=== PATIENT | female | born 1955 | race Caucasian/White ===

== ENCOUNTER 2021-03-31 13:17 | Outpatient (CLI) | payer OTHER, SELFPAY ==
--- NOTE | ~2021-03-31 | MM_ITS ---
EXAMINATION: MM screening justine BI w javi HISTORY: Screening TECHNIQUE: Craniocaudal and mediolateral oblique 3-D tomosynthesis images were obtained and synthetic 2-D images were generated. CAD analysis was submitted and interpreted. COMPARISON: No prior mammogram is available for comparison at this institution. BREAST PARENCHYMAL COMPOSITION: There are scattered areas of fibroglandular density. FINDINGS: There is a mass in the upper inner quadrant of the left breast near the skin surface. There is focal asymmetry superiorly in the left breast on MLO view. There are right breast periareolar asy mmetries. There are clustered calcifications in the periareolar location as well. IMPRESSION: 1. Bilateral breast asymmetries and clustered nonspecific right breast calcifications. 2. Additional mammographic views and possible breast ultrasound are recommended. BI-RADS Category 0: Incomplete: Needs additional imaging evaluation. Reviewed, dictated and finalized at location A. IMPRESSION: 1. Bilateral breast asymmetries and clustered nonspecific right breast calcific ations. 2. Additional mammographic views and possible breast ultrasound are recommended . BI-RADS Category 0: Incomplete: Needs additional imaging evaluation.
== END 2021-03-31 13:18 | disposition home or self-care (01) ==
PROVIDERS: PCP Family Medicine; Visit Provider Physician Assistant Medical
DX: Z12.31 Encounter for screening mammogram for malignant neoplasm of breast (principal); R92.8 Other abnormal and inconclusive findings on diagnostic imaging of breast
CPT/HCPCS: 77063; 77067

== ENCOUNTER 2021-04-18 08:07 | Emergency (ER) | payer OTHER, SELFPAY ==
[2021-04-18 08:15] VITALS: BP 154/84; PULSE 70; RESP 16; TEMP 36.5; O2SAT 99
--- NOTE | 2021-04-18 08:15 | ED.DIZZY ---
HPI - Dizziness General Chief Complaint: Dizziness Stated Complaint: dizziness Time Seen by Provider: 04/18/21 08:10 Source: patient, RN notes reviewed and old records reviewed Mode of arrival: ambulatory Limitations: no limitations History of Present Illness HPI Narrative: 65-year-old female is brought in by her with complaints of headache, dizziness, nausea since 430 this morning. Patient states she has not been able to walk normally. Patient states that her heart felt like it was racing this morning. [place] really slow on exam Has a history of anxiety, depression, migraines, high cholesterol and insomnia. Has a history of inner ear issues. Has taken one dose of her Nurtec but states her symptoms have not improved. Patient states that I want to make sure I am not having a stroke. MD elicited complaint: dizziness and difficulty walking Pertinent past history: inner ear problems Related Data Home Medications Medication Instructions Recorded Confirmed bupropion HCl 300 mg 24 hr tablet, 300 mg PO QAM 03/05/21 03/05/21 extended release Review of Systems Review of Systems: All systems reviewed & are unremarkable except as noted in HPI and below Constitutional: Constitutional: Reports no additional constitutional complaints, Denies chills and Denies fever(s) Eyes: Eyes: Reports no additional eye complaints, Denies change in vision and Denies photophobia ENT: Reports as per HPI, Reports dizziness and Denies sore throat Cardiovascular: Cardiovascular: Reports as per HPI, Denies chest pain, Reports rapid heart rate and Reports slow heart rate Respiratory: Respiratory: Reports no additional respiratory complaints, Denies cough, Denies dyspnea and Denies wheezing Gastrointestinal: Gastrointestinal: Reports as per HPI, Denies abdominal pain, Reports nausea and Denies vomiting Musculoskeletal: Musculoskeletal: Reports no additional musculoskeletal complaints and Denies back pain Integumentary/Breasts: Skin/Breast: Reports system reviewed and no additional complaints, except as docu Neurologic: Reports as per HPI, Denies confusion, Reports dizziness, Denies syncope, Reports headache(s), Denies focal weakness, Denies numbness and Denies weakness Psychiatric: Psychiatric: Reports no additional psychiatric complaints Allergic/Immunologic: Allergic/Immunologic: Reports no additional allergic/immunologic complaints [facility] Past Medical History Medical History (Updated 04/18/21 @ 09:06 by Sonal James) Anxiety and depression Surgical History Surgical History (Updated 04/18/21 @ 08:15 by Sonal James) H/O: hysterectomy History of appendectomy Hx of breast reduction, elective Hx of cholecystectomy Family History Family History Father Family history of diabetes mellitus in first degree relative Grandparent Family history of malignant neoplasm of bone Family history of coronary artery disease Other Family history of lymphoma Social History Social History Alcohol intake: never Substance use: never Substance use type: does not use Additional living arrangements comments: Gender identity (if verbalized by the patient): Female Sexual Orientation (if Verbalized by the Patient): Straight or Heterosexual Spiritual care concerns: No Agree to blood products: Yes Comments At the time of my signature, I reviewed and agree with the nursing past medical, surgical, social, and family history. There is no relevant family history pertinent to the patient complaint. Exam Const: General: cooperative, healthy appearing, comfortable, no acute distress and alert Nutritional Appearance: well nourished Orientation/consciousness: patient oriented x3 Limitations: no limitations HENMT: Head: normal to inspection Ears: external ear abnormal Eyes: Conjunctivae: conjunctivae normal Pupil
--- NOTE | 2021-04-18 08:17 | ECG_ITS ---
Measurements Intervals [place] Rate: 54 P: 84 TX: 303 QRS: 31 QRSD: 90 T: 54 QT: 419 QTc: 398 Interpretive Statements SINUS BRADYCARDIA INCOMPLETE RIGHT BUNDLE BRANCH BLOCK LOW QRS VOLTAGE IN PRECORDIAL LEAD BASELINE ARTIFACT- I, II, III, AVR, AVL, AVF, V1-V3 BORDERLINE ECG Electronically Signed On 04-18-2021 17:28:13 PORTABLE IRRIGATION OPERATOR by Dalton Palmer D.O.
== END 2021-04-18 08:25 | disposition short-term general hospital (02) ==
PROVIDERS: Emergency Provider Nurse Practitioner; PCP Family Medicine
DX: R42 Dizziness and giddiness (principal); I45.10 Unspecified right bundle-branch block; F41.9 Anxiety disorder, unspecified; F32.9 Major depressive disorder, single episode, unspecified
CPT/HCPCS: 93005; 99213; G0463

== ENCOUNTER 2021-04-18 08:47 | Emergency (ER) | payer OTHER, SELFPAY ==
--- NOTE | ~2021-04-18 | XR_ITS ---
EXAMINATION: XR chest 2V EXAM DATE: 04/18/2021 11:09 INDICATION: Dizziness. TECHNIQUE: Frontal and lateral projections of the chest obtained and reviewed. Comparison is made to prior examination from 03/17/2015. FINDINGS: The lungs are clear. There are no pleural effusions. The cardiomediastinal silhouette is within normal limits. There is no pneumothorax suspected. Cervical fusion hardware. Mild bony degen erative changes. IMPRESSION: No acute cardiopulmonary findings. Reviewed, dictated and finalized at location A. [employer] LEGAL ASSISTANT
--- NOTE | ~2021-04-18 | CT_ITS ---
EXAMINATION: CT brain wo con EXAM DATE: 04/18/2021 10:19 INDICATION: Dizziness . TECHNIQUE: Spiral CT of the head was performed without contrast. Axial, coronal and sagittal images were reviewed. The dose-length product (DLP) for this examination was 605.33 mGy-cm. The exposure w as tailored according to patient size, and iterative reconstruction (ASIR) was used as additional dos e reduction technique. There is no prior study for comparison. FINDINGS: There is no acute intraparenchymal hemorrhage. No evidence of intraparenchymal brain mass lesion. No evidence of acute infarction. There is no mass effect or midline shift. The ventricles are normal in size. There are no extra-axial collections. There are no acute calvarial fractures. T he orbits are unremarkable. Soft tissue is unremarkable. The visualized sinuses and mastoid air tres ls are well aerated. IMPRESSION: 1. No acute intracranial findings. Reviewed, dictated and finalized at location A. ETHYLENE COMBINER
--- NOTE | 2021-04-18 08:54 | ECG_ITS ---
Measurements Intervals [place] Rate: 56 P: -21 MD: 133 QRS: 21 QRSD: 91 T: 65 QT: 401 QTc: 390 Interpretive Statements SINUS BRADYCARDIA INCOMPLETE RIGHT BUNDLE BRANCH BLOCK BASELINE ARTIFACT- I, II, III, AVR, AVL, AVF BORDERLINE ECG Electronically Signed On 04-18-2021 17:24:37 PATTERN REPAIR PERSON by Dalton Palmer D.O.
[2021-04-18 08:56] VITALS: BP 140/75; PULSE 59; RESP 18; TEMP 36.1; O2SAT 100
[2021-04-18 09:24] LABS: Basophils Absolute Auto 0.1 K/mm3 (0.0-0.1); Basophils Percent Auto 1.7 % (0.2-1.2); Eosinophils Absolute Auto 0.2 K/mm3 (0-0.3); Hematocrit 37.6 % (37.0-47.0); Hemoglobin 12.2 g/dL (12.0-15.0); Immature Granulocyte Absolute 0.01 K/mm3 (0.00-0.031); Immature Granulocyte Percent A 0.2 % (0-0.5); Lymphocytes Absolute Auto 1.47 K/mm3 (0.9-3.2); Lymphocytes Percent Auto 30.7 % (18.3-44.2); Mean Corpuscular HGB Conc 32.4 g/dl (32-36); Mean Corpuscular Hemoglobin 30.5 pg (26-34); Mean Platelet Volume 10.6 fl (7.4-10.4); Monocytes Absolute Auto 0.5 K/mm3 (0.1-0.6); Monocytes Percent Auto 10.6 % (2.6-8.5); Neutrophils Absolute Auto 2.5 K/mm3 (1.3-6.7); Neutrophils Percent Auto 51.8 % (45.5-73.1); Platelet Count Result 152 k/mm3 (150-375); Red Cell Distribution Width 13.1 % (11.5-14.5); White Blood Count 4.8 K/mm3 (4.5-10.0)
[2021-04-18 09:38] VITALS: BP 133/75; PULSE 70
[2021-04-18 09:40] VITALS: BP 145/83; PULSE 71
[2021-04-18 09:42] VITALS: BP 142/86; PULSE 64
[2021-04-18 09:44] LABS: Alanine Aminotransferase 35 U/L (4-35); Albumin Level 4.6 g/dL (3.5-5.1); Alkaline Phosphatase 77 U/L (38-126); Anion Gap 7 mmol/L (8-16); Aspartate Amino Transferase 33 U/L (14-36); Bilirubin,Total 0.5 mg/dL (0.2-1.3); Blood Urea Nitrogen 17 mg/dL (7-17); Carbon Dioxide 30 mmol/L (22-30); Chloride 104 mmol/L (98-107); Estimated CRCL calculation 60 ml/min; Estimated Glomerular Filt Rate > 60; Glucose 96 mg/dL (65-110); Potassium 3.9 mmol/L (3.4-5.0); Sodium 141 mmol/L (137-145)
[2021-04-18 10:16] LABS: Troponin I < 0.012 ng/mL (0.000-0.034)
[2021-04-18] MEDS: MECLIZINE HCL 25 MG TABLET PO (10:21)
[2021-04-18] MEDS: ONDANSETRON INJ 4 MG/2 ML VIAL IV PUSH (10:21)
[2021-04-18] MEDS: SODIUM CHLORIDE 0.9% IV 500 ML 999 ML IV CONT (10:22)
--- NOTE | 2021-04-18 10:42 | ED.DIZZY ---
HPI - Dizziness General Chief Complaint: Dizziness Stated Complaint: Dizziness/ migraines Time Seen by Provider: 04/18/21 10:11 Source: patient Mode of arrival: wheelchair Limitations: no limitations History of Present Illness HPI Narrative: This is a 65-year-old female that presents to the emergency department for dizziness that started this morning. Reports she woke up around 430 and was very dizzy and unsteady on her feet. Associated with some nausea and a mild headache. Does report history of dizziness in the past due to BPPV. She tried to rest without relief which prompted her to be seen. Denies fever, vision changes, chest pain, shortness of breath, vomiting, numbness or weakness. Related Data Home Medications Medication Instructions Recorded Confirmed bupropion HCl 300 mg 24 hr tablet, 300 mg PO QAM 03/05/21 04/18/21 extended release Allergies Allergy/AdvReac Type Severity Reaction Status Date / Time No Known Allergies Allergy Verified 04/18/21 09:37 Review of Systems Review of Systems: CONSTITUTIONAL: Denies fever EYES: Denies visual changes CARDIOVASCULAR: Denies chest pain, or edema. RESPIRATORY: Denies dyspnea. GASTROINTESTINAL: Reports nausea. Denies vomiting NEUROLOGIC: Denies numbness, or weakness. All systems reviewed & are unremarkable except as noted in HPI and below PMFSH Past Medical History Medical History (Updated 04/18/21 @ 12:59 by Karina Urrutia PA-C) Anxiety and depression Hyperlipidemia Insomnia Surgical History Surgical History (Updated 04/18/21 @ 08:15 by Sonal James) H/O: hysterectomy History of appendectomy Hx of breast reduction, elective Hx of cholecystectomy Family History Family History Father Family history of diabetes mellitus in first degree relative Grandparent Family history of malignant neoplasm of bone Family history of coronary artery disease Other Family history of lymphoma Social History Social History Alcohol intake: never Substance use: never Substance use type: does not use Additional living arrangements comments: Gender identity (if verbalized by the patient): Female Sexual Orientation (if Verbalized by the Patient): Straight or Heterosexual Spiritual care concerns: No Agree to blood products: Yes Exam Narrative: GENERAL: Well-appearing, well-nourished, and in no acute distress. HEAD: Normocephalic, atraumatic. EYES: PERRLA and EOMI. ENT: Nares clear, no rhinorrhea or epistaxis. Mucous membranes moist. Oropharynx without tonsillar hypertrophy exudate or other lesions. Bilateral TMs pearly olivares non-bulging NECK: Supple. No adenopathy or masses. No carotid bruits or JVD CHEST: Clear to auscultation. No respiratory distress. No wheezes rales or rhonchi HEART: Regular rate and rhythm. No murmur heard. Normal peripheral pulses. ABDOMEN: Soft, nontender, nondistended, normal active bowel sounds. EXTREMITIES: Normal range of motion. No edema. Strength equal in bilateral upper and lower extremities (5/5). Normal [id number] SKIN: Warm, dry, no rash. NEURO: No focal deficits. Alert and oriented x3. Cranial nerves II through XII grossly intact PSYCH: Normal mood and affect Course Vital Signs Vital signs: Vital Signs Temperature 97.0 F L 04/18/21 08:56 Pulse Rate 59 L 04/18/21 08:56 Respiratory Rate 18 04/18/21 08:56 Blood Pressure 140/75 04/18/21 08:56 Pulse Oximetry 100 04/18/21 08:56 Temperature 97.0 F L 04/18/21 08:56 Pulse Rate 64 04/18/21 12:10 Respiratory Rate 17 04/18/21 12:10 Blood Pressure 128/73 04/18/21 12:10 Pulse Oximetry 97 04/18/21 12:10 MDM - Dizziness MDM Narrative Medical decision making narrative: Patient presents to the emergency department for an episode of dizziness this morning. Does have history of BPPV in the past. She is afebrile an
[2021-04-18 12:10] VITALS: BP 128/73; PULSE 64; RESP 17; O2SAT 97
[2021-04-18 13:17] VITALS: BP 126/90; PULSE 60; RESP 16; O2SAT 100
== END 2021-04-18 13:19 | disposition home or self-care (01) ==
PROVIDERS: Emergency Provider Emergency Medicine; PCP Family Medicine
DX: R42 Dizziness and giddiness (principal); E78.5 Hyperlipidemia, unspecified; F41.9 Anxiety disorder, unspecified; F32.A Depression, unspecified
CPT/HCPCS: 36415; 70450; 71046; 80053; 84484; 85025; 93005; 96361; 96374; 99284; A9270; J2405; J7040

== ENCOUNTER 2021-04-27 12:44 | Outpatient (CLI) | payer OTHER, SELFPAY ==
--- NOTE | ~2021-04-27 | MMUS_ITS ---
EXAMINATION: MM diagnostic justine LT w javi, US breast LT limited HISTORY: New focal mass reported in medial aspect of left breast on 03/31/2021 screening mammogram TECHNIQUE: Additional 3-D tomosynthesis images of the left breast were performed and synthetic 2-D im ages were generated. CAD analysis was submitted and interpreted. High resolution targeted left breast ultrasound was performed. COMPARISON: 04/17/2021 bilateral screening mammogram 08/13/2015 bilateral screening mammogram FINDINGS: MAMMOGRAPHIC FINDINGS: An approximately 3.3 x 5.3 mm circumscribed mass is noted superficially in the mid to upper inner lef t breast at approximately 9 to 10:00 position, not present on 08/13/2015. Targeted ultrasound examinat ion was performed. No suspicious mass or architectural distortion of the left breast is noted otherwise. A stable circum scribed approximately 4.3 circumscribed mass is again noted in the upper outer quadrant left breast, present on 08/13/2015 There are scattered benign calcifications of the left breast. No malignant calcification, architectur al distortion, skin thickening or retraction is detected. ULTRASOUND: 10:00 7 cm from nipple: Parallel circumscribed approximately 4 x 6.9 mm mass, peripherally hyperechoi c, without internal vascularity or suspicious shadowing. IMPRESSION: 1. Probable benign finding 2. 6 month diagnostic left mammogram and targeted left breast ultrasound follow-up are recommended BI-RADS category 3, probably benign findings. Reviewed, dictated and finalized at location A. MECHANIC IMPRESSION: 1. Probable benign finding 2. 6 month diagnostic left mammogram and targeted left breast ultrasound follow -up are recommended BI-RADS category 3, probably benign findings.
== END 2021-04-27 12:45 | disposition home or self-care (01) ==
LOC: ANHIMG 12:45
PROVIDERS: PCP Family Medicine; Visit Provider Physician Assistant Medical
DX: R92.1 Mammographic calcification found on diagnostic imaging of breast (principal); N64.89 Other specified disorders of breast; N63.22 Unspecified lump in the left breast, upper inner quadrant
CPT/HCPCS: 76642; 77061; 77065; G0279

== ENCOUNTER 2022-03-07 22:13 | Inpatient (IN) | payer OTHER, MEDICARE, SELFPAY ==
--- NOTE | ~2022-03-07 | CT_ITS ---
EXAMINATION: CTA abdomen pelvis DATE: 03/08/2022 00:50 INDICATION: Severe abdominal pain radiating to the back. TECHNIQUE: Computed tomographic angiography (CTA) of the abdomen and pelvis was performed with 100 mL Omnipaque-350 intravenous contrast. Automated exposure control and iterative reconstruction techniqu e were employed. The dose-length product was 566.22 mGy-cm. Maximum intensity projection 3D-reconstru ctions of the aorta and other arteries were constructed by the technologist on a separate workstation . COMPARISON: CT abdomen and pelvis 06/27/2018 FINDINGS: The visualized portions of the lung bases demonstrate mild atelectasis. No pleural effusion . The heart size is normal. No pericardial effusion. The liver and spleen are normal. The gallbladder is absent. The pancreas, adrenal glands, and right kidney are normal. There are cysts in left kidney measuring up to 16 mm. There is diverticulosis of the colon without evidence of diverticulitis. The appendix is not visualized. There are multiple dilated loops of small bowel with mesenteric edema and multiple transition points in close proximity. There are surgical changes of the stomach. There is a small sliding hiatal hernia. Abdominal aorta is normal in caliber. There is no significant stenosis of celiac axis, superior mesenteric artery, inferior mesenteric artery, or the renal arteries. There is a small volume of pelvic ascites. There are no pathologically enlarged lymph nodes. There is sever e lower lumbar spondylosis. IMPRESSION: 1. Closed-loop small bowel obstruction. I discussed this result with Dr. Merchant. 2. Small volume of ascites. Reviewed, dictated and finalized at location A.
--- NOTE | ~2022-03-07 | XR_ITS ---
EXAMINATION: XR abdomen NG/feed tube rechec DATE: 03/08/2022 14:15 INDICATION: Nasogastric tube placement. TECHNIQUE: A supine view of the abdomen was obtained. COMPARISON: Abdomen radiograph at 4:29 AM, CT abdomen and pelvis 03/08/2022 FINDINGS: There are dilated loops of small bowel. The colon is normal in caliber. The nasogastric tub e tip is in the stomach. Skin mehdi are noted. IMPRESSION: 1. Nasogastric tube tip in the stomach. 2. Dilated small bowel, consistent with adynamic ileus. Reviewed, dictated and finalized at location A.
--- NOTE | ~2022-03-07 | XR_ITS ---
EXAMINATION: XR abdomen NG/feed tube rechec DATE: 03/08/2022 04:34 INDICATION: Nasogastric tube placement. TECHNIQUE: An upright view of the abdomen was obtained. COMPARISON: Abdomen radiograph at 3:02 AM, CT abdomen and pelvis 03/08/2022 FINDINGS: The lower abdomen is excluded. There are dilated loops of small bowel. The colon is decompr essed. The nasogastric tube tip is in the stomach. IMPRESSION: 1. Nasogastric tube tip in the stomach. 2. Small bowel obstruction. Reviewed, dictated and finalized at location A.
--- NOTE | ~2022-03-07 | XR_ITS ---
EXAMINATION: XR abdomen NG/feed tube insert DATE: 03/08/2022 03:07 INDICATION: Nasogastric tube placement. TECHNIQUE: An upright view of the abdomen was obtained. COMPARISON: CT abdomen and pelvis 03/08/2022 FINDINGS: The lower abdomen is excluded. There are dilated loops of small bowel. The colon is decompr essed. The nasogastric tube tip is in the stomach. IMPRESSION: 1. Nasogastric tube tip in the stomach. 2. Small bowel obstruction. Reviewed, dictated and finalized at location A.
[2022-03-07 22:17] VITALS: BP 133/80; PULSE 65; RESP 16; TEMP 36.2; O2SAT 100
[2022-03-08] VITALS (16 sets, daily range): BP systolic 125–153; BP diastolic 72–95; PULSE 61–98; RESP 12–18; TEMP 36.6–36.9; O2SAT 92–100; BMI 30.2
[2022-03-08] MEDS: fentaNYL CITRATE INJ (*CRX) 100 MCG/2 ML VIAL 50 MCG IV PUSH ×2 (00:10→09:59)
[2022-03-08] MEDS: ONDANSETRON INJ 4 MG/2 ML VIAL IV PUSH ×2 (00:10→03:00)
[2022-03-08] MEDS: SODIUM CHLORIDE 0.9% IV 1,000 ML 999 ML IV CONT (00:11)
[2022-03-08 00:28] LABS: Add Urine Microscopic? YES; Appearance Urine Cloudy (Clear); Bilirubin Urine Negative (Negative); Blood Urine 1+ (Negative); Calcium Oxalate Crystals Urine Present /hpf; Color Urine Yellow (Yellow); Glucose Urine UA Negative (Negative); Ketones Urine Negative (Negative); Leukocyte Esterase Ur Negative LEU/UL (Negative); Mucus Urine Few /lpf; Nitrate Urine Negative (Negative); Protein Urine Negative (Negative); Squamous Epithelial Cell Urine Rare /hpf (Few); Urobilinogen Urine Negative mg/dL (<2.0); WBC Urine 0-3 /hpf
[2022-03-08 00:29] LABS: Basophils Absolute Auto 0.1 K/mm3 (0.0-0.1); Basophils Percent Auto 0.7 % (0.2-1.2); Eosinophils Absolute Auto 0.1 K/mm3 (0-0.3); Eosinophils Percent Auto 0.6 % (0-4.4); Hematocrit 37.3 % (37.0-47.0); Hemoglobin 11.9 g/dL (12.0-15.0); Immature Granulocyte Absolute 0.04 K/mm3 (0.00-0.031); Immature Granulocyte Percent A 0.4 % (0-0.5); Lymphocytes Absolute Auto 1.09 K/mm3 (0.9-3.2); Lymphocytes Percent Auto 11.6 % (18.3-44.2); Mean Corpuscular HGB Conc 31.9 g/dl (32-36); Mean Corpuscular Hemoglobin 30.2 pg (26-34); Mean Corpuscular Volume 94.7 fl (80-100); Mean Platelet Volume 10.2 fl (7.4-10.4); Monocytes Absolute Auto 0.5 K/mm3 (0.1-0.6); Monocytes Percent Auto 5.4 % (2.6-8.5); Neutrophils Absolute Auto 7.6 K/mm3 (1.3-6.7); Neutrophils Percent Auto 81.3 % (45.5-73.1); Platelet Count Result 177 k/mm3 (150-375); Red Blood Count 3.94 M/mm3 (4.2-5.4); Red Cell Distribution Width 14.5 % (11.5-14.5); White Blood Count 9.4 K/mm3 (4.5-10.0)
[2022-03-08 00:32] LABS: Alanine Aminotransferase 24 U/L (6-35); Albumin Level 4.6 g/dL (3.5-5.1); Alkaline Phosphatase 84 U/L (38-126); Anion Gap 14 mmol/L (8-16); Aspartate Amino Transferase 26 U/L (14-36); Bilirubin,Total 0.5 mg/dL (0.2-1.3); Blood Urea Nitrogen 18 mg/dL (7-17); Calcium 9.8 mg/dL (8.4-10.2); Carbon Dioxide 25 mmol/L (22-30); Chloride 102 mmol/L (98-107); Estimated CRCL calculation 61 ml/min; Estimated Glomerular Filt Rate > 60; Glucose 159 mg/dL (65-110); Lipase 74 U/L (23-300); Potassium 3.8 mmol/L (3.4-5.0); Sodium 141 mmol/L (137-145)
[2022-03-08 00:35] LABS: INR 1.1; Prothrombin Time 13.6 Seconds (11.1-14.7)
--- NOTE | 2022-03-08 00:40 | ED.ABDPAIN ---
HPI - Abdominal Pain General Chief Complaint: Abdominal Pain Stated Complaint: abdominal pain that radiates to back Time Seen by Provider: 03/07/22 23:24 History of Present Illness HPI narrative: This is a 66-year-old female with past medical history of cholecystectomy and appendectomy, presenting to the emergency department complaining of abdominal pain. She states she was at rest, when she suddenly developed 10 out of 10, sharp abdominal pain across the left upper quadrant, epigastrium and right upper quadrant. The pain did not radiate and is intermittent. She has vomited once without blood. She had a bowel movement earlier today without blood and has since been able to pass gas. She denies any recent trauma, fevers, chills or pain with urination. Related Data Home Medications Medication Instructions Recorded Confirmed bupropion HCl 300 mg 24 hr tablet, 300 mg PO QAM 03/05/21 03/08/22 extended release (Wellbutrin XL) zolpidem 5 mg tablet 5 mg PO HS 03/08/22 03/08/22 Allergies Allergy/AdvReac Type Severity Reaction Status Date / Time No Known Allergies Allergy Verified 12/30/21 08:00 Review of Systems Review of Systems: CONSTITUTIONAL: Denies fever, chills, or sweats. CARDIOVASCULAR: Denies chest pain, palpitations, or edema. RESPIRATORY: Denies cough or dyspnea. GASTROINTESTINAL: abdominal pain, nausea, vomiting, Denies diarrhea. GENITOURINARY: Denies dysuria or hematuria. SKIN: Denies rash or itching. MUSCULOSKELETAL: back pain Denies , joint pain, or myalgia. NEUROLOGIC: Denies headache, numbness, dizziness, or weakness. PSYCHIATRIC: Denies anxiety or depression. [facility] Past Medical History Medical History Anxiety and depression Bilateral impacted cerumen BMI 27.0-27.9,adult Hearing loss Hyperlipidemia Insomnia Surgical History Surgical History H/O: hysterectomy History of appendectomy Hx of breast reduction, elective Hx of cholecystectomy Family History Family History Father Family history of diabetes mellitus in first degree relative Alzheimers disease Diabetes mellitus Grandparent Family history of malignant neoplasm of bone Family history of coronary artery disease Mother Dementia Cholecystectomy planned Sibling Malignant neoplasm of prostate Other Family history of lymphoma Social History Social History Smoking status: Never smoker Second hand tobacco smoke exposure: No Alcohol intake: never Substance use: never Substance use type: does not use Additional living arrangements comments: 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 EYES: PERRLA and EOMI. ENT: Nares clear, no rhinorrhea or epistaxis. Mucous membranes moist. Oropharynx without tonsillar hypertrophy exudate or other lesions. NECK: Supple. No adenopathy or masses. No carotid bruits or JVD CHEST: Clear to auscultation. No respiratory distress. No wheezes rales or rhonchi HEART: Regular rate and rhythm. No murmur heard. Normal peripheral pulses. ABDOMEN: Soft, diffusely tender to palpation in the left upper, epigastric and right upper quadrants without rebound, mildly distended, normal active bowel sounds. Right CVA tenderness to palpation EXTREMITIES: Normal range of motion. No edema. SKIN: Warm, dry, no rash. NEURO: No focal deficits. Alert and oriented x3. PSYCH: Normal mood and affect. Course Course Emergency Course: 02:05 - CT STAT Rad
[2022-03-08] MEDS: MORPHINE SULFATE (*CRX) 4 MG/ML INJ IV PUSH ×2 (02:49→13:37)
[2022-03-08] MEDS: SODIUM CHLORIDE 0.9% IV 1,000 ML 125 ML IV CONT ×2 (03:00→08:05)
[2022-03-08] MEDS: ONDANSETRON INJ 4 MG/2 ML VIAL (03:19)
--- NOTE | 2022-03-08 04:34 | ADMGEN ---
This patient, Amada Willis, was admitted to [address] [place] [address] Room 310-01. Patient/family oriented to hospital policies and general routines including ID bracelet, bed and alarms, visiting hours, pain management, procedures, bathroom and other care routines, personal items, smoking policy, room service/diet, and visiting hours. Information on how to activate the Rapid Response Team has been discussed. Patient/Family are encouraged to report perceived risks to care and to ask questions if they do not understand what they are told or what they should do.
--- NOTE | 2022-03-08 09:29 | PM.CNGS ---
Assessment and Plan Assessment and plan (1) Small bowel obstruction: Code(s): K56.609 - Unspecified intestinal obstruction, unspecified as to partial versus complete obstruction Status: Acute Assessment and Plan: Initially her CT scan was read by the virtual radiologist overnight as a small bowel obstruction. She has a history of multiple abdominal surgeries that would suggest intraabdominal adhesions as a likely cause. When our Radiologist read the CT scan this morning, he felt that this appeared to be a closed loop small bowel obstruction. With a closed loop obstruction, there is a higher risk of bowel ischemia and perforation, and she is less likely to improve with conservative treatment. Therefore, we would recommend proceeding urgently with an exploratory laparotomy, possible small bowel resection, this morning. We discussed the procedure, risks, benefits, alternatives, and expected recovery in detail with the patient. She agrees to proceed. Continue NG tube decompression, bowel rest, and IV fluids. Discussed with the patient that we would expect her to be hospitalized at least through the weekend for monitoring and post-op recovery as well. (2) Hyperlipidemia: Code(s): E78.5 - Hyperlipidemia, unspecified Status: Acute (3) Hearing loss: Qualifiers: Hearing loss type: unspecified Laterality: bilateral Qualified Code(s): H91.93 - Unspecified hearing loss, bilateral Code(s): H91.90 - Unspecified hearing loss, unspecified ear Status: Acute Plan I have discussed the patient's case and plan of care with Dr. Merchant. Thank you for allowing us to see the patient in consultation and we will continue to follow along with you. History of Present Illness Consult details Consult date: 03/08/22 Reason for consult: other (Small-bowel obstruction) Requesting physician: Polo Leslie MD Narrative: This is a 66-year-old woman with a history of hyperlipidemia and depression. She presented to the ER last night with complaints of abdominal pain. She reports a sudden onset of abdominal pain around 9:00 a.m. yesterday morning. She reports her pain as radiating across her entire abdomen and into her back. She has never had pain like this before. She tried taking Tylenol without relief. She tried taking a hot bath without relief. The pain progressively worsened throughout the day. She tried eating toast in the evening, but then developed nausea and vomiting. She then presented to the ER for evaluation. En route to the ER, she had more vomiting. CT scan of the abdomen and pelvis was read by the virtual radiologist last night and suggested a small-bowel obstruction. Our service was consulted by the ED physician for the small-bowel obstruction. The patient was admitted to the hospitalist service. She had an NG-tube placed and is currently NPO. She received IV fentanyl in the ER, which helped with her pain. The patient is now seen on the medical floor. Our radiologist read the CT scan this morning and suggested it appeared to be a closed loop small bowel obstruction. She reports her abdominal pain is worsening again this morning. She denies flatus. She did have a formed bowel movement yesterday morning prior to the onset of pain. Previous abdominal surgeries include an open cholecystectomy with incidental appendectomy, partial hysterectomy, 2 deliveries, and a laparoscopic gastric sleeve surgery about 5 years ago. She lost 127 lb after surgery, but has since gained about 45 lbs back over the pandemic. No history of a bowel obstruction. She reports progressive hearing loss over the past seven years. She is now nearly deaf and wears hearing aids typically, which are not currently with her at the hospital. She retired due to her hearing loss. Review of Systems Review of Systems: All systems reviewed & are unremarkable except as noted in HPI and below Constitutional: Constitutional:
--- NOTE | 2022-03-08 09:37 | WPDHPUPDATE1 ---
History and Physical Update Update Date/Time: 03/08/22 09:37 Patient has closed loop small bowel obstruction by CT scan. Plan to proceed with laparotomy this morning as risk of bowel infarction is high in this instance. History and Physical has been reviewed, including an updated exam of the patient. There are NO changes in the patient's condition. Risks, benefits, and alternatives have been discussed and questions answered. Patient agrees to proceed with procedure.
--- NOTE | 2022-03-08 09:47 | WPDANESEPPF ---
Anes - Initial Pre Proc Eval Procedure: Operation Date: 03/08/22 10:30 Proposed Procedures p Exploratory Laparotomy for Small Bowel Obstruction - Parminder Merchant MD Date/Time: 03/08/22 09:47 Surgeon: Polo Leslie MD Pre Op Diagnosis: small bowel obstruction Patient Data Age: 66 Gender: F Height: 1.6 m Weight: 77.27 kg Last Vital Signs Temp 36.8 C 03/08/22 06:00 Pulse 73 03/08/22 06:00 Resp 16 03/08/22 06:00 BP 153/85 H 03/08/22 06:00 Pulse Ox 96 03/08/22 07:57 O2 Del Method Room Air 03/08/22 08:00 Allergies Allergy/AdvReac Type Severity Reaction Status Date / Time No Known Allergies Allergy Verified 03/08/22 09:39 Home Medications Medication Instructions Recorded Confirmed Type bupropion HCl 300 mg 24 hr tablet, 300 mg PO QAM 03/05/21 03/08/22 History extended release (Wellbutrin XL) rosuvastatin 20 mg tablet (Crestor) 20 mg PO DAILY #90 tabs 09/08/21 03/08/22 Rx zolpidem 5 mg tablet 5 mg PO HS 03/08/22 03/08/22 History Laboratory Tests 03/07/22 03/07/22 03/07/22 00:12 00:12 00:12 WBC RBC Hgb Hct MCV MCH MCHC RDW Plt Count MPV Immature Gran % (Auto) Neut % (Auto) Lymph % (Auto) Falls % (Auto) Eos % (Auto) Baso % (Auto) Lymph # (Auto) Falls # (Auto) Eos # (Auto) Baso # (Auto) Abs Immat Gran (auto) Absolute Neuts (auto) Absolute Nucleated RBC Nucleated RBC % PT 13.6 Seconds Seconds (11.1-14.7) INR 1.1 Sodium 141 mmol/L mmol/L (137-145) Potassium 3.8 mmol/L mmol/L (3.4-5.0) Chloride 102 mmol/L mmol/L (98-107) Carbon Dioxide 25 mmol/L mmol/L (22-30) Anion Gap 14 mmol/L mmol/L (8-16) BUN 18 mg/dL H mg/dL (7-17) Creatinine 0.80 mg/dL mg/dL (0.7-1.0) Estim Creat Clear Calc 61 ml/min ml/min Estimated GFR > 60 (59 - ) Glucose 159 mg/dL H mg/dL (65-110) Lactic Acid 1.0 mmol/L mmol/L (0.7-2.0) Calcium 9.8 mg/dL mg/dL (8.4-10.2) Total Bilirubin 0.5 mg/dL mg/dL (0.2-1.3) AST 26 U/L U/L (14-36) ALT 24 U/L U/L (6-35) Alkaline Phosphatase 84 U/L U/L (38-126) Total Protein 8.0 g/dL g/dL (6.3-8.2) Albumin 4.6 g/dL g/dL (3.5-5.1) Lipase 74 U/L U/L (23-300) Urine Color Urine Appearance Urine pH Ur Specific [place] Urine Protein Urine Glucose (UA) Urine Ketones Ur Blood (Man) Urine Nitrate Urine Bilirubin Urine Urobilinogen Leukocyte Esterase Rfl Urine RBC Urine WBC Ur Squamous Epith Cells Calcium Oxalate Crystal Urine Mucus Blood Type Antibody Screen 03/07/22 03/08/22 03/08/22 00:13 00:12 07:35 WBC 9.4 K/mm3 K/mm3 (4.5-10.0) RBC 3.94 M/mm3 L M/mm3 (4.2-5.4) Hgb 11.9 g/dL L g/dL (12.0-15.0) Hct 37.3 % % (37.0-47.0) MCV 94.7 fl fl (80-100) MCH 30.2 pg pg (26-34) MCHC 31.9 g/dl L g/dl (32-36) RDW 14.5 % % (11.5-14.5) Plt Count 177 k/mm3 k/mm3 (150-375) MPV 10.2 fl fl (7.4-10.4) Immature Gran % (Auto) 0.4 % % (0-0.5) Neut % (Auto) 81.3 % H % (45.5-73.1) Lymph % (Auto) 11.6 % L % (18.3-44.2) Falls % (Auto) 5.4 % % (2.6-8.5) Eos % (Auto) 0.6 % % (0-4.4) Baso % (Auto) 0.7 % % (0.2-1.2) Lymph # (Auto) 1.09 K/mm3 K/mm3
[2022-03-08] MEDS: LACTATED RINGERS 1,000 ML 30 ML IV CONT ×2 (09:48→11:42)
[2022-03-08] MEDS: ceFAZolin 2 GM/D5W 50 ML 2 GM/50 ML BAG IVPB (10:31)
[2022-03-08] MEDS: fentaNYL CITRATE INJ (*CRX) 100 MCG/2 ML VIAL 25 MCG IV PUSH ×4 (12:03→12:32)
--- NOTE | 2022-03-08 12:11 | P.OP_ITS ---
Procedure Note - Detailed Date of Procedure 03/08/22 Pre-op Diagnosis small bowel obstruction Post-op Diagnosis Same Procedure Performed Adhesiolysis Surgeon Parminder Merchant MD [facility] Assistant Claire ELISEA Anesthesia General Indications Patient is a 66-year-old woman who has had a previous cholecystectomy and appendectomy through a generous right paramedian incision. She has also had a hysterectomy via Pfannenstiel incision. She presented with abdominal pain and evidence of a small-bowel obstruction. Review of the CT scan suggests this is actually a closed loop obstruction with mesenteric occlusion and potential bowel infarction. She is taken to surgery now for exploratory laparotomy for small bowel obstruction. Findings A long adhesive band emanating from the distal ileum had encircled about 4 ft of distal ileum causing vascular and intestinal obstruction. There were other adhesions but none causing obstruction. No other significant findings were noted. Description of Procedure Patient was taken to surgery and induced into general anesthesia. The abdomen is prepped and draped. The scar from the previous right paramedian incision was largely excised. Only the upper most portion of the scar was left in place. The scar was discarded. I then dissected down through the subcutaneous and then dissected through the scarred fascia. As we dissected through this the peritoneum was seen. I opened the peritoneum and extended this the length of the wound. Fortunately the there were not a large amount of abdominal wall adhesions. There were some omental adhesions which were taken down. There was also some omental adhesions in the pelvis. These were likewise taken down. There was a lot of stool in the colon but otherwise no real significant findings in the abdominal exploration. I did find the area of the obstruction. I gently eviscerated this area and found the very long adhesive band. It was coming off the anti mesenteric border of distal ileum and was adherent to an area that was never really seen but it had encircled about 4 ft of distal ileum causing mesenteric and intestinal obstruction. There was no bowel infarction. I divided the band and actually excised it. I reduced the herniated bowel and its mesentery. I then found the ligament of Treitz and ran the entire small bowel from there to the ileocecal valve. No other adhesions or potential obstruction sites were noted. The bowel was then placed back in its general anatomic position. The omentum was positioned over the bowel. I then checked the NG tube in positioned it in the stomach as best I could. Patient did have gastric reduction surgery in the past. We then closed the abdomen with bidirectional running 1. PDS. The subQ was closed with interrupted 3-0 Vicryl suture. The skin was approximated with wide mehdi. Wound was dressed with Xeroform gauze, fluffs and Medipore tape. Patient was awakened and taken to recovery in good condition. Sponge and needle counts were correct x2. Estimated Blood Loss -10 Urine Output -50.0 Drains Yes (Nasogastric tube) Packing No Pathology None sent Complications No immediate complications Condition Stable Disposition PACU [facility] Billing Surgery - Charge Forward: Surgery Billing (Adhesiolysis)
[2022-03-08] MEDS: LACTATED RINGERS 1,000 ML 100 ML IV CONT ×2 (13:37→22:31)
--- NOTE | 2022-03-08 13:47 | PM.IMHP ---
H&P: HPI History of Present Illness Date/Time: 03/08/22 13:47 Chief Complaint: Abdominal pain Narrative: Patient is a 66-year-old female with a past medical history of hyperlipidemia, appendectomy, gastric sleeve, cholecystectomy who presented the hospital with abdominal pain with radiation to the back. Patient stated that the pain started yesterday morning. She stated the pain started in the epigastric region of the and went all the way around into generalized pain that radiated to her back. She stated that the pain was like a [place]. She stated that it was like a labor pain sharp and dull. She stated that all this started after having a bowel movement. She stated her bowel movement was fine and she also stated that she only had a piece of toast for breakfast. She denied any vomiting or nausea prior to coming to the ED however in the ED she stated that she did have a bout of vomiting. She denies taking anything. Patient did go down for a exploratory lap. She is still complaining of right-sided abdominal pain. She did state prior to coming and she was unable to stand or move around got lightheaded and dizzy with the pain that she was experiencing at home. She denies any urination issues. She also denies any chest pain, shortness a breath, sweats, fevers, chills, syncope, falls. She did state she has had a pretty decent headache and has been very weak and fatigued. Currently she rates her pain a 10/10. CTA of the abdomen and pelvis showed closed loop small-bowel obstruction and small volume of ascites. Abdominal x-ray showed small bowel obstruction. Labs appear to be unremarkable upon arrival. Patient is being admitted to the hospitalist service as an inpatient. Review of Systems Review of Systems: All systems reviewed & are unremarkable except as noted in HPI and below PMFSH Past Medical History Medical History Anxiety and depression Bilateral impacted cerumen BMI 27.0-27.9,adult Hearing loss Hyperlipidemia Insomnia Migraines Peripheral neuropathy Surgical History Surgical History H/O: hysterectomy Open partial hysterectomy History of appendectomy Incidental appendectomy during cholecystectomy History of sleeve gastrectomy Laparoscopic sleeve gastrectomy around 2016 Hx of breast reduction, elective Hx of cholecystectomy 1981 - open cholecystectomy Family History Family History Father Family history of diabetes mellitus in first degree relative Alzheimers disease Diabetes mellitus Grandparent Family history of malignant neoplasm of bone Family history of coronary artery disease Mother Dementia Cholecystectomy planned Sibling Malignant neoplasm of prostate Other Family history of lymphoma Social History Social History (Updated 03/08/22 @ 13:58 by LD Lopez) Social History: Patient lives with her Luis Alberto of 20 years. Luis Alberto is her surrogate and she wishes to be a full code at this time. Patient also has 3 dogs at home. Patient also has 3 children. 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
[2022-03-08] MEDS: BENZOCAINE/MENTHOL (*BKC) 18 EA LOZENGE 1 LOZENGE PO (14:39)
[2022-03-08] MEDS: MORPHINE SULFATE (*CRX) 2 MG/ML INJ IV PUSH (17:45)
[2022-03-08] MEDS: FAMOTIDINE 20 MG/2 ML VIAL IV PUSH (20:50)
[2022-03-09] MEDS: IBUPROFEN IV 800 MG/200 ML 800 MG/200 ML BAG 400 MG IVPB (01:35)
--- NOTE | 2022-03-09 01:39 | PC.NURSE ---
Pt complains of headache 08/05. I called pharmacy because I couldn't find any liquid ibuprofen up here, and patient didn't want Morphine because she thought that might be what caused her headache to begin with. Gerson sent me up 2 doses. I hung one bag, and will pass along to dayshift that she has another available on the shelf if she needs it. Will continue to monitor.
[2022-03-09 04:16] VITALS: BP 130/78; PULSE 78; RESP 18; TEMP 36.4; O2SAT 96
[2022-03-09 06:07] VITALS: BP 134/75; PULSE 97; RESP 16; TEMP 37.3; O2SAT 96
[2022-03-09 06:25] LABS: Hematocrit 31.5 % (37.0-47.0); Hemoglobin 10.3 g/dL (12.0-15.0); Immature Platelet Fraction Pct 4.4 % (0.9-11.2); Mean Corpuscular HGB Conc 32.7 g/dl (32-36); Mean Corpuscular Hemoglobin 29.9 pg (26-34); Mean Corpuscular Volume 91.6 fl (80-100); Mean Platelet Volume 11.1 fl (7.4-10.4); Platelet Count Result 137 k/mm3 (150-375); Red Blood Count 3.44 M/mm3 (4.2-5.4); Red Cell Distribution Width 14.8 % (11.5-14.5); White Blood Count 9.5 K/mm3 (4.5-10.0)
[2022-03-09 06:38] LABS: Anion Gap 8 mmol/L (8-16); Blood Urea Nitrogen 15 mg/dL (7-17); Calcium 8.3 mg/dL (8.4-10.2); Carbon Dioxide 25 mmol/L (22-30); Chloride 104 mmol/L (98-107); Estimated CRCL calculation 68 ml/min; Estimated Glomerular Filt Rate > 60; Glucose 101 mg/dL (65-110); Potassium 3.7 mmol/L (3.4-5.0); Sodium 137 mmol/L (137-145)
[2022-03-09 08:00] VITALS: BP 132/76; PULSE 85; RESP 16; TEMP 37.2; O2SAT 96
[2022-03-09] MEDS: ENOXAPARIN 40 MG/0.4 ML SYRINGE SUB-Q (08:10)
[2022-03-09] MEDS: FAMOTIDINE 20 MG/2 ML VIAL IV PUSH ×2 (08:10→21:07)
--- NOTE | 2022-03-09 08:10 | PC.NURSE ---
Meds scanned and computer would not let me save do to Bebe Stimac PA being in computer. Computer too and batteries replaced.
--- NOTE | 2022-03-09 09:14 | WPDANESPN ---
Anes - Prog Note Post-Op Date/Time: 03/09/22 09:14 Cardiovascular status: normal Respiratory status: normal Airway patency: baseline Mental status: baseline Post-Op hydration status: normal Vital Signs: Last Vital Signs Temp 99.1 F 03/09/22 06:07 Pulse 97 03/09/22 06:07 Resp 16 03/09/22 06:07 BP 134/75 03/09/22 06:07 Pulse Ox 96 03/09/22 06:07 O2 Del Method Nasal Cannula 03/08/22 12:55 O2 Flow Rate 2 03/08/22 12:55 Pain Score (VAS): 4 I/O: Intake & Output 03/08/22 03/09/22 03/09/22 23:59 07:59 15:59 Intake Total 1000 200 Output Total 50 600 Balance 950 -400 Laboratory Tests 03/09/22 05:38 03/09/22 05:38 03/09/22 03/09/22 05:38 05:38 WBC 9.5 RBC 3.44 L Hgb 10.3 L Hct 31.5 L MCV 91.6 MCH 29.9 MCHC 32.7 RDW 14.8 H Plt Count 137 L MPV 11.1 H % Immature Plt Fraction 4.4 Sodium 137 Potassium 3.7 Chloride 104 Carbon Dioxide 25 Anion Gap 8 BUN 15 Creatinine 0.70 Estim Creat Clear Calc 68 Estimated GFR > 60 Glucose 101 Calcium 8.3 L Patient Feedback: Patient satisfied with anesthetic care. Other Findings: NG remains to LIS. denies flattus. min-mod pain
[2022-03-09] MEDS: LACTATED RINGERS 1,000 ML 100 ML IV CONT ×2 (10:55→21:07)
--- NOTE | 2022-03-09 11:07 | PM.PNGS ---
Progress Note: A&P Assessment and Plan (1) Small bowel obstruction: Code(s): K56.609 - Unspecified intestinal obstruction, unspecified as to partial versus complete obstruction Status: Acute Assessment and Plan: POD#1 and doing well. Awaiting return of bowel function. Continue NG tube, NPO, and IV fluids Encouraged increasing activity and ambulating in the halls today (2) Hyperlipidemia: Code(s): E78.5 - Hyperlipidemia, unspecified Status: Acute (3) Hearing loss: Qualifiers: Hearing loss type: unspecified Laterality: bilateral Qualified Code(s): H91.93 - Unspecified hearing loss, bilateral Code(s): H91.90 - Unspecified hearing loss, unspecified ear Status: Acute Plan I have discussed the patient's case and plan of care with Dr. Vegas. Subjective Subjective Date/Time Seen: 03/09/22 10:07 Post Op day: 1 (Exploratory laparotomy, adhesiolysis) Patient reports: no flatus, no bowel movement and afebrile Interval history: Patient seen and examined. Her main complaint this morning is a headache. She does deal with migraines chronically and feels similar. She just received IV Tylenol, which has helped. Reports her incisional pain is very tolerable. No flatus. No other complaints at this time. Review of Systems Review of Systems: All systems reviewed & are unremarkable except as noted in HPI and below Exam Const: General: comfortable, no acute distress and awake Orientation/consciousness: patient oriented x3 Resp: Effort & Inspection: no respiratory distress Auscultation: clear to auscultation bilaterally Cardio: Rate: regular rate Rhythm: regular rhythm GI: Inspection: non-distended and incision (midline incision with mehdi intact, scant serosanguineous drainage) GI Palp: Yes Soft to palpation, Yes Tenderness to palpation present (GI) (incisional) and No Guarding due to palpation present (GI) Auscultation: absent bowel sounds Extrem: General: normal to inspection, no calf tenderness bilaterally and no edema Objective Data Vital Signs Vital Signs: Vital Signs - 24 hr 03/08/22 11:42 03/08/22 11:55 03/08/22 12:10 Temperature 98.1 F Pulse Rate 82 72 69 Respiratory Rate 12 12 12 Blood Pressure 147/87 H 145/95 H 149/95 H Pulse Oximetry 100 100 100 Oxygen Delivery Simple Face Mask Simple Face Mask Simple Face Mask Oxygen Flow Rate 8 8 8 03/08/22 12:25 03/08/22 12:40 03/08/22 12:55 Temperature Pulse Rate 83 70 75 Respiratory Rate 12 12 12 Blood Pressure 144/79 H 148/83 H 139/92 H Pulse Oximetry 100 100 100 Oxygen Delivery Nasal Cannula Nasal Cannula Nasal Cannula Oxygen Flow Rate 2 2 2 03/08/22 13:12 03/08/22 13:42 03/08/22 14:42 Temperature 98.2 F 97.9 F 98 F Pulse Rate 70 88 92 Respiratory Rate 12 12 13 Blood Pressure 151/77 H 125/91 H 146/83 H Pulse Oximetry 100 99 93 Oxygen Delivery Oxygen Flow Rate 03/08/22 22:31 03/09/22 06:07 Temperature 97.9 F 99.1 F Pulse Rate 98 97 Respiratory Rate 16 16 Blood Pressure 125/72 134/75 Pulse Oximetry 96 96 Oxygen Delivery Oxygen Flow Rate Intake/Output Intake/Output: Intake & Output 03/06/22 03/07/22 03/08/22 03/09/22 23:59 23:59 23:59 23:59 Intake Total 3350 1300 Output Total 450 600 Balance 2900 700 Meds/Results Medications: Active Medications Generic Name Dose Route Start Last Admin Trade Name Freq PRN Reason Stop Dose Admin Benzocaine 1 lozenge 03/08/22 13:44 03/08/22 14:39 Benzocaine/Menthol (*Bkc) 18 Ea Lozenge PO 1 lozenge PRN PRN Administration Sore Throat Enoxaparin Sodium 40 mg 03/09/22 09:00 03/09/22 08:10 Enoxaparin 40 Mg/0.4 Ml Syringe SUB-Q 40 mg DAILY MANINDER Administration Famotidine 20 mg 03/08/22 21:00 03/09/22 08:10 Famotidine 20 Mg/2 Ml Vial IV PUSH 20 mg Q12HR MANINDER Administration Lactated Ringer's 1,000 mls @ 100 mls/hr 03/08/22 12:57 03/09/22 10:55 Lr - Lactated Ring
--- NOTE | 2022-03-09 14:13 | PM.IMPN ---
Progress Note: A&P Assessment and Plan (1) Small bowel obstruction: Code(s): K56.609 - Unspecified intestinal obstruction, unspecified as to partial versus complete obstruction Status: Acute Assessment and Plan: patient presented with abdominal pain, found to have closed-loop small-bowel obstruction noted on imaging patient being seen in consultation by General surgery s/p adhesiolysis on 03/08/2022. patient tolerated the procedure well continue with NG decompression, IV fluid rehydration, NPO diet await return of bowel function increased activity supportive care. Analgesics and antiemetics available as needed (2) Anemia: Code(s): D64.9 - Anemia, unspecified Status: Acute Assessment and Plan: mild, normocytic. H&H remaining stable postoperatively (3) Hyperlipidemia: Code(s): E78.5 - Hyperlipidemia, unspecified Status: Acute Assessment and Plan: Rosuvastatin on hold while NPO. Resume when clinically appropriate. LFTs are stable to continue this medication. (4) Anxiety and depression: Code(s): F41.9 - Anxiety disorder, unspecified; F32.A - Depression, unspecified Status: Acute Assessment and Plan: No acute issues. Bupropion on hold at this time. Resume when appropriate (5) Migraines: Code(s): G43.909 - Migraine, unspecified, not intractable, without status migrainosus Status: Acute Assessment and Plan: Ppatient complains of migraine headache today. Some improvement with Tylenol. She has not wanted to take morphine. Review of PCP notes suggest this to be an ongoing, persistent issue. Referred to Neurology last year but unclear if patient followed up. Limited options while NPO with NG in place. Supportive care. Ice pack or heat as needed. Subjective Date/time seen: 03/09/22 14:13 Interval history: date of service: 03/09/2022 Amada Willis is a 66-year-old female with a history of hearing loss, hyperlipidemia, migraines, peripheral neuropathy, hysterectomy, appendectomy, sleeve gastrectomy, and cholecystectomy who is seen in follow-up for small-bowel obstruction now s/p adhesiolysis. She is doing well today. She does endorse abdominal bloating and some discomfort which she rates as 4/10. She has not had any bowel function or passage of flatus. She denies nausea or vomiting. No fevers or chills. She had trouble sleeping last night. today she complains of a migraine with visual disturbances that started last night. Typically Excedrin helps her migraine, however she is NPO at this time. IV Tylenol helped a little she said but is still present. Tolerating NG tube. Denies shortness breath, cough, chest pain. she has no additional concerns. Review of Systems Review of Systems: All systems reviewed & are unremarkable except as noted in HPI and below Exam Narrative: General: Well-nourished, well-appearing 66-year-old female, sitting up in bed , comfortable, NARD Neuro: awake, alert and oriented x4, speech clear, no focal neuro deficits noted HEENMT: normocephalic, atraumatic, EOMI, sclerae anicteric, hard of hearing Respiratory: clear to auscultation bilaterally, nonlabored breathing Cardio: regular rate, regular rhythm with S1-S2 Abdomen: slightly bloated, hypoactive bowel sounds, soft, nontender, midline incision covered with bandage that is clean and dry Extremities: no edema, erythema, or tenderness to palpation, DP pulses 2+ bilaterally Skin: no rashes or lesions, warm and dry Psych: appropriate mood and affect, judgment and insight intact Objective Data Vital Signs Vital Signs: Vital Signs - 24 hr 03/08/22 14:42 03/08/22 22:31 03/09/22 06:07 Temperature 98 F 97.9 F 99.1 F Pulse Rate 92 98 97 Respiratory Rate 13 16 16 Blood Pressure 146/83 H 125/72 134/75 Pulse Oximetry 93 96 96 Oxygen Delivery 03/09/22 08:05 03/09/22 08:00 Temperature 99.0 F Pulse
[2022-03-09 22:00] VITALS: BP 149/75; PULSE 76; RESP 19; TEMP 37.2; O2SAT 95
[2022-03-10 06:00] VITALS: BP 153/69; PULSE 82; RESP 18; TEMP 36.3; O2SAT 96
[2022-03-10] MEDS: LACTATED RINGERS 1,000 ML 100 ML IV CONT ×2 (06:34→17:25)
[2022-03-10 06:42] LABS: Hematocrit 32.3 % (37.0-47.0); Hemoglobin 10.6 g/dL (12.0-15.0); Mean Corpuscular HGB Conc 32.8 g/dl (32-36); Mean Corpuscular Hemoglobin 30.3 pg (26-34); Mean Corpuscular Volume 92.3 fl (80-100); Mean Platelet Volume 10.5 fl (7.4-10.4); Platelet Count Result 150 k/mm3 (150-375); Red Cell Distribution Width 14.4 % (11.5-14.5); White Blood Count 8.2 K/mm3 (4.5-10.0)
[2022-03-10 07:13] LABS: Anion Gap 10 mmol/L (8-16); Blood Urea Nitrogen 9 mg/dL (7-17); Calcium 8.6 mg/dL (8.4-10.2); Carbon Dioxide 27 mmol/L (22-30); Chloride 100 mmol/L (98-107); Estimated CRCL calculation 78 ml/min; Estimated Glomerular Filt Rate > 60; Glucose 80 mg/dL (65-110); Potassium 3.4 mmol/L (3.4-5.0); Sodium 137 mmol/L (137-145)
[2022-03-10] MEDS: ENOXAPARIN 40 MG/0.4 ML SYRINGE SUB-Q (08:37)
[2022-03-10] MEDS: FAMOTIDINE 20 MG/2 ML VIAL IV PUSH ×2 (08:38→20:29)
--- NOTE | 2022-03-10 11:10 | PM.PNGS ---
Progress Note: A&P Assessment and Plan (1) Small bowel obstruction: Code(s): K56.609 - Unspecified intestinal obstruction, unspecified as to partial versus complete obstruction Status: Acute Assessment and Plan: POD#2 and doing well. Awaiting return of bowel function. Continue NG tube, try clamping routine on NG and continue IV fluids Encouraged increasing activity and ambulating in the halls today Ok to restart some of pt's po meds while NG is clamped. (2) Hyperlipidemia: Code(s): E78.5 - Hyperlipidemia, unspecified Status: Acute (3) Hearing loss: Qualifiers: Hearing loss type: unspecified Laterality: bilateral Qualified Code(s): H91.93 - Unspecified hearing loss, bilateral Code(s): H91.90 - Unspecified hearing loss, unspecified ear Status: Acute Subjective Subjective Date/Time Seen: 03/10/22 11:10 Post Op day: 2 ( doing well. Postop day #2) Patient reports: no new complaints, pain is less and other ( mainly complaining of insomnia and headaches) Review of Systems Review of Systems: All systems reviewed & are unremarkable except as noted in HPI and below Constitutional: Constitutional: Reports as per HPI, Denies chills and Denies fever(s) Cardiovascular: Cardiovascular: Denies chest pain and Denies dyspnea Respiratory: Respiratory: Reports no additional respiratory complaints and Denies dyspnea Gastrointestinal: Gastrointestinal: Reports as per HPI and Denies bloating Musculoskeletal: Musculoskeletal: Reports no additional musculoskeletal complaints Neurologic: Denies memory loss Psychiatric: Psychiatric: Denies anxiety and Denies memory loss Exam Const: General: cooperative, comfortable, alert and awake Orientation/consciousness: patient oriented x3 HENMT: Head: normal to inspection Mouth: Yes moist mucous membranes Eyes: Sclera: sclerae normal Pupils: Equal, round and reactive pupils present Neck: Neck: normal visual inspection and no JVD Chest: Chest palpation & inspection: normal inspection of the chest Resp: Effort & Inspection: normal respiratory effort Auscultation: clear to auscultation bilaterally Cardio: Jugular venous distension: no JVD Rate: regular rate GI: Inspection: incision (Clean and dry with intact mehdi. no signs of infection) Auscultation: Hypoactive bowel sounds present Neuro: General: patient oriented x3 Cranial nerves: Yes Equal, round and reactive pupils present Objective Data Vital Signs Vital Signs: Vital Signs - 24 hr 03/09/22 22:00 03/10/22 06:00 Temperature 37.2 C 36.3 C L Pulse Rate 76 82 Respiratory Rate 19 18 Blood Pressure 149/75 H 153/69 H Pulse Oximetry 95 96 Intake/Output Intake/Output: Intake & Output 03/07/22 03/08/22 03/09/22 03/10/22 23:59 23:59 23:59 23:59 Intake Total 3350 2300 1100 Output Total 450 1650 2200 Balance 2900 650 -1100 Meds/Results Medications: Active Medications Generic Name Dose Route Start Last Admin Trade Name Freq PRN Reason Stop Dose Admin Benzocaine 1 lozenge 03/08/22 13:44 03/08/22 14:39 Benzocaine/Menthol (*Bkc) 18 Ea Lozenge PO 1 lozenge PRN PRN Administration Sore Throat Enoxaparin Sodium 40 mg 03/09/22 09:00 03/10/22 08:37 Enoxaparin 40 Mg/0.4 Ml Syringe SUB-Q 40 mg DAILY MANINDER Administration Famotidine 20 mg 03/08/22 21:00 03/10/22 08:38 Famotidine 20 Mg/2 Ml Vial IV PUSH 20 mg Q12HR MANINDER Administration Lactated Ringer's 1,000 mls @ 100 mls/hr 03/08/22 12:57 03/10/22 06:34 Lr - Lactated Ringers Iv IV CONT 100 mls/hr .Q10H MANINDER Administration Acetaminophen 1,000 mg in 100 mls @ 400 mls/hr 03/10/22 07:56 03/10/22 08:36 Ofirmev 1,000 Mg Ivpb IVPB 03/11/22 07:55 400 mls/hr Q6H PRN Administration Pain Rated 4-6 Morphine Sulfate 2 mg 03/08/22 12:57 03/08/22 17:45 Morphine Sulfate (*Crx) 2 Mg/Ml Inj IV PUSH 2 mg Q2H PRN Administration Pain Rated 4-6
[2022-03-10] MEDS: MAGNESIUM HYDROXIDE SUSP 30 ML UDC FEED TUBE (11:20)
[2022-03-10] MEDS: ACETAMINOPHEN/ASPIRIN/CAFFEINE 250-250-65 MG TABLET 1 TABLET PO (12:54)
--- NOTE | 2022-03-10 13:14 | PM.IMPN ---
Progress Note: A&P Assessment and Plan (1) Small bowel obstruction: Code(s): K56.609 - Unspecified intestinal obstruction, unspecified as to partial versus complete obstruction Status: Acute Assessment and Plan: patient presented with abdominal pain, found to have closed-loop small-bowel obstruction noted on imaging patient being seen in consultation by General surgery s/p adhesiolysis on 03/08/2022. patient tolerated the procedure well NG tube clamped today. Continue NPO diet except meds with ice chips. Continue IV fluids. Advance diet as tolerated per surgical recommendations await return of bowel function increased activity supportive care. Analgesics and antiemetics available as needed (2) Anemia: Code(s): D64.9 - Anemia, unspecified Status: Acute Assessment and Plan: mild, normocytic. H&H remaining stable postoperatively (3) Hyperlipidemia: Code(s): E78.5 - Hyperlipidemia, unspecified Status: Acute Assessment and Plan: Rosuvastatin on hold while NPO. Resume when clinically appropriate. LFTs are stable to continue this medication. (4) Anxiety and depression: Code(s): F41.9 - Anxiety disorder, unspecified; F32.A - Depression, unspecified Status: Acute Assessment and Plan: No acute issues. Bupropion on hold at this time. Resume when appropriate (5) Migraines: Code(s): G43.909 - Migraine, unspecified, not intractable, without status migrainosus Status: Acute Assessment and Plan: Patient complains of migraine headache. Review of PCP notes suggest this to be an ongoing, persistent issue. Referred to Neurology last year but unclear if patient followed up. Minimal improvement with Tylenol. Will give Excedrin today while NG is clamped and reassess for improvement. Supportive care. Ice pack or heat as needed. Subjective Date/time seen: 03/10/22 13:14 Interval history: Date of service: 03/10/2022 Amada Willis is a 66-year-old female with a history of hearing loss, hyperlipidemia, migraines, peripheral neuropathy, hysterectomy, appendectomy, sleeve gastrectomy, and cholecystectomy who is seen in follow-up for small-bowel obstruction now s/p adhesiolysis. She feels well today. She complains of abdominal soreness with movement. Otherwise no major concerns. Reports still not passing flatus. No bowel movements. No nausea or vomiting. Continues to complain of persistent headache. No shortness of breath, cough, chest pain. Review of Systems Review of Systems: All systems reviewed & are unremarkable except as noted in HPI and below Exam Narrative: General: Well-nourished, well-appearing 66-year-old female, sitting up in bed , comfortable, NARD Neuro: awake, alert and oriented x4, speech clear, no focal neuro deficits noted HEENMT: normocephalic, atraumatic, EOMI, sclerae anicteric, hard of hearing Respiratory: clear to auscultation bilaterally, nonlabored breathing Cardio: regular rate, regular rhythm with S1-S2 Abdomen: slightly bloated, normoactive bowel sounds, soft, nontender, midline mehdi Extremities: no edema, erythema, or tenderness to palpation, DP pulses 2+ bilaterally Skin: no rashes or lesions, warm and dry Psych: appropriate mood and affect, judgment and insight intact Objective Data Vital Signs Vital Signs: Vital Signs - 24 hr 03/09/22 22:00 03/10/22 06:00 03/10/22 08:00 Temperature 99 F 97.4 F L Pulse Rate 76 82 Respiratory Rate 19 18 Blood Pressure 149/75 H 153/69 H Pulse Oximetry 95 96 Oxygen Delivery Room Air Intake/Output Intake/Output: Intake & Output 03/07/22 03/08/22 03/09/22 03/10/22 23:59 23:59 23:59 23:59 Intake Total 3350 2300 1100 Output Total 450 1650 2200 Balance 2900 650 -1100 Meds/Results Medications: Active Medications Generic Name Dose Route Start Last Admin Trade Name Freq PRN Reason Stop Dose Admi
[2022-03-10 14:00] VITALS: BP 135/69; PULSE 82; RESP 16; TEMP 36.9; O2SAT 97
[2022-03-10] MEDS: buPROPion HCL XL (24 HR) 150 MG TABCR 300 MG PO (19:03)
[2022-03-10] MEDS: ZOLPIDEM TARTRATE (*CRX) 5 MG TABLET PO (21:57)
[2022-03-10 22:00] VITALS: BP 142/67; PULSE 76; RESP 17; TEMP 36.4; O2SAT 97
[2022-03-11] MEDS: LACTATED RINGERS 1,000 ML 100 ML IV CONT (02:39)
[2022-03-11 06:00] VITALS: BP 136/59; PULSE 79; RESP 20; TEMP 36.6; O2SAT 95
[2022-03-11 06:53] LABS: Hematocrit 31.2 % (37.0-47.0); Hemoglobin 10.2 g/dL (12.0-15.0); Mean Corpuscular HGB Conc 32.7 g/dl (32-36); Mean Corpuscular Hemoglobin 30.6 pg (26-34); Mean Corpuscular Volume 93.7 fl (80-100); Mean Platelet Volume 9.8 fl (7.4-10.4); Platelet Count Result 143 k/mm3 (150-375); Red Blood Count 3.33 M/mm3 (4.2-5.4); Red Cell Distribution Width 13.9 % (11.5-14.5); White Blood Count 6.6 K/mm3 (4.5-10.0)
[2022-03-11 07:09] LABS: Anion Gap 12 mmol/L (8-16); Blood Urea Nitrogen 10 mg/dL (7-17); Calcium 8.2 mg/dL (8.4-10.2); Carbon Dioxide 26 mmol/L (22-30); Chloride 100 mmol/L (98-107); Estimated CRCL calculation 68 ml/min; Estimated Glomerular Filt Rate > 60; Glucose 76 mg/dL (65-110); Potassium 3.2 mmol/L (3.4-5.0); Sodium 138 mmol/L (137-145)
[2022-03-11] MEDS: ENOXAPARIN 40 MG/0.4 ML SYRINGE SUB-Q (08:27)
[2022-03-11] MEDS: FAMOTIDINE 20 MG/2 ML VIAL IV PUSH (08:27)
[2022-03-11 09:25] LABS: Iron 41 ug/dL (37-170)
[2022-03-11 09:39] LABS: Percent Iron Saturation 16 % (20-50)
[2022-03-11 09:42] LABS: Folic Acid 7.2 ng/mL (2.76->20)
--- NOTE | 2022-03-11 09:45 | P.PNIM_ITS ---
Progress Note: A&P Assessment and Plan (1) Small bowel obstruction: Code(s): K56.609 - Unspecified intestinal obstruction, unspecified as to partial versus complete obstruction Status: Acute Assessment and Plan: * POD 3 * Presented with abdominal pain, found to have closed-loop small-bowel obstruction noted on imaging * Consultation by General surgery * s/p adhesiolysis on 03/08/2022. patient tolerated the procedure well * NG tube clamped today. * Diet advanced to clear liquids * Continue IV fluids for now * Advance diet as tolerated per surgical recommendations * Bowel sounds present * increased activity * supportive care. Analgesics and antiemetics available as needed (2) Anemia: Code(s): D64.9 - Anemia, unspecified Status: Acute Assessment and Plan: * H/H 10.3/31.2 * mild, normocytic. * H&H remaining stable postoperatively * Anemia labs iron 41, TIBC 260,% saturation 16, ferritin 106, B12 938, folate 7.2 * Supplement as indicated (3) Hyperlipidemia: Code(s): E78.5 - Hyperlipidemia, unspecified Status: Acute Assessment and Plan: * Rosuvastatin on hold while NPO. Resume when clinically appropriate. LFTs are stable to continue this medication. (4) Anxiety and depression: Code(s): F41.9 - Anxiety disorder, unspecified; F32.A - Depression, unspecified Status: Acute Assessment and Plan: * No acute issues. Bupropion on hold at this time. Resume when appropriate (5) Migraines: Code(s): G43.909 - Migraine, unspecified, not intractable, without status migrainosus Status: Acute Assessment and Plan: * Patient complains of migraine headache. * Review of PCP notes suggest this to be an ongoing, persistent issue. * Referred to Neurology last year but unclear if patient followed up. * Minimal improvement with Tylenol. * Excedrin given 03/10/22 * Supportive care. * Ice pack or heat as needed. * Resolved at this time Time Spent With Patient Time with patient: Greater than 35 minutes Subjective Date/time seen: 03/11/22944 Interval history: 03/11/22944 Patient is very hopeful that she can get her NG tube out as she stated that she is having some nose and throat pain. She denies any chest pain, nausea, vomiting, diarrhea, shortness of breath. She did state that she has been having some gas and that her headache is gone. She does have positive bowel sounds in all 4 quadrants. She was up walking around when I seen her. She steady on her feet. She is ready to go however will need to wait to see if the patient can tolerate a diet. Date of service: 03/10/2022 Amada Willis is a 66-year-old female with a history of hearing loss, hyperlipidemia, migraines, peripheral neuropathy, hysterectomy, appendectomy, sleeve gastrectomy, and cholecystectomy who is seen in follow-up for small-bowel obstruction now s/p adhesiolysis. She feels well today. She complains of abdominal soreness with movement. Otherwise no major concerns. Reports still not passing flatus. No bowel movements. No nausea or vomiting. Continues to complain of persistent headache. No shortness of breath, cough, chest pain. Review of Systems Review of Systems: All systems reviewed & are unremarkable except as noted in HPI and below Exam Const: General: dominick
--- NOTE | 2022-03-11 09:45 | PM.IMPN ---
Progress Note: A&P Assessment and Plan (1) Small bowel obstruction: Code(s): K56.609 - Unspecified intestinal obstruction, unspecified as to partial versus complete obstruction Status: Acute Assessment and Plan: POD 3 Presented with abdominal pain, found to have closed-loop small-bowel obstruction noted on imaging Consultation by General surgery s/p adhesiolysis on 03/08/2022. patient tolerated the procedure well NG tube clamped today. Diet advanced to clear liquids Continue IV fluids for now Advance diet as tolerated per surgical recommendations Bowel sounds present increased activity supportive care. Analgesics and antiemetics available as needed (2) Anemia: Code(s): D64.9 - Anemia, unspecified Status: Acute Assessment and Plan: H/H 10.3/31.2 mild, normocytic. H&H remaining stable postoperatively Anemia labs iron 41, TIBC 260,% saturation 16, ferritin 106, B12 938, folate 7.2 Supplement as indicated (3) Hyperlipidemia: Code(s): E78.5 - Hyperlipidemia, unspecified Status: Acute Assessment and Plan: Rosuvastatin on hold while NPO. Resume when clinically appropriate. LFTs are stable to continue this medication. (4) Anxiety and depression: Code(s): F41.9 - Anxiety disorder, unspecified; F32.A - Depression, unspecified Status: Acute Assessment and Plan: No acute issues. Bupropion on hold at this time. Resume when appropriate (5) Migraines: Code(s): G43.909 - Migraine, unspecified, not intractable, without status migrainosus Status: Acute Assessment and Plan: Patient complains of migraine headache. Review of PCP notes suggest this to be an ongoing, persistent issue. Referred to Neurology last year but unclear if patient followed up. Minimal improvement with Tylenol. Excedrin given 03/10/22 Supportive care. Ice pack or heat as needed. Resolved at this time Time Spent With Patient Time with patient: Greater than 35 minutes Subjective Date/time seen: 03/11/22944 Interval history: 03/11/22944 Patient is very hopeful that she can get her NG tube out as she stated that she is having some nose and throat pain. She denies any chest pain, nausea, vomiting, diarrhea, shortness of breath. She did state that she has been having some gas and that her headache is gone. She does have positive bowel sounds in all 4 quadrants. She was up walking around when I seen her. She steady on her feet. She is ready to go however will need to wait to see if the patient can tolerate a diet. Date of service: 03/10/2022 Amada Willis is a 66-year-old female with a history of hearing loss, hyperlipidemia, migraines, peripheral neuropathy, hysterectomy, appendectomy, sleeve gastrectomy, and cholecystectomy who is seen in follow-up for small-bowel obstruction now s/p adhesiolysis. She feels well today. She complains of abdominal soreness with movement. Otherwise no major concerns. Reports still not passing flatus. No bowel movements. No nausea or vomiting. Continues to complain of persistent headache. No shortness of breath, cough, chest pain. Review of Systems Review of Systems: All systems reviewed & are unremarkable except as noted in HPI and below Exam Const: General: cooperative, healthy appearing, no acute distress, well developed, alert, awake and well nourished Nutritional Appearance: well nourished Orientation/consciousness: patient oriented x3 Limitations: no limitations HENMT: Head: normal to inspection Ears: hearing grossly normal bilaterally Face/Nose/Sinus: Normal external nose present Mouth: Yes lip normal, Yes tongue normal and Yes moist mucous membranes Teeth and gingiva: abnormal tooth and associated gingiva and poor dentition Eyes: General: appearance normal, both eyes and all related s
[2022-03-11 14:00] VITALS: BP 123/67; PULSE 87; RESP 17; TEMP 37.5; O2SAT 98
[2022-03-11] MEDS: MAGNESIUM HYDROXIDE SUSP 30 ML UDC FEED TUBE (14:33)
--- NOTE | 2022-03-11 15:29 | PM.PNGS ---
Progress Note: A&P Assessment and Plan (1) Small bowel obstruction: Code(s): K56.609 - Unspecified intestinal obstruction, unspecified as to partial versus complete obstruction Status: Acute Assessment and Plan: POD#4 and doing well. Awaiting return of bowel function. NG tube removed yesterday and patient tolerating advancement of diet well. Encouraged increasing activity and ambulating in the halls today Ok to restart all of pt's po meds (2) Hyperlipidemia: Code(s): E78.5 - Hyperlipidemia, unspecified Status: Acute (3) Hearing loss: Qualifiers: Hearing loss type: unspecified Laterality: bilateral Qualified Code(s): H91.93 - Unspecified hearing loss, bilateral Code(s): H91.90 - Unspecified hearing loss, unspecified ear Status: Acute Subjective Subjective Date/Time Seen: 03/11/22 08:29 Post Op day: 4 ( Continues to progress well.) Patient reports: no new complaints, flatus and no bowel movement Review of Systems Review of Systems: All systems reviewed & are unremarkable except as noted in HPI and below Constitutional: Constitutional: Reports as per HPI, Denies chills and Denies fever(s) Cardiovascular: Cardiovascular: Denies chest pain and Denies dyspnea Respiratory: Respiratory: Reports no additional respiratory complaints and Denies dyspnea Gastrointestinal: Gastrointestinal: Reports as per HPI and Denies bloating Musculoskeletal: Musculoskeletal: Reports no additional musculoskeletal complaints Neurologic: Denies memory loss Psychiatric: Psychiatric: Denies anxiety and Denies memory loss Exam Const: General: cooperative, comfortable, alert and awake Orientation/consciousness: patient oriented x3 HENMT: Head: normal to inspection Mouth: Yes moist mucous membranes Eyes: Sclera: sclerae normal Pupils: Equal, round and reactive pupils present Neck: Neck: normal visual inspection and no JVD Chest: Chest palpation & inspection: normal inspection of the chest Resp: Effort & Inspection: normal respiratory effort Auscultation: clear to auscultation bilaterally Cardio: Jugular venous distension: no JVD Rate: regular rate GI: Inspection: incision (Clean and dry with intact mehdi. no signs of infection) Auscultation: normal bowel sounds Neuro: General: patient oriented x3 Cranial nerves: Yes Equal, round and reactive pupils present Objective Data Vital Signs Vital Signs: Vital Signs - 24 hr 03/10/22 20:00 03/10/22 22:00 03/11/22 06:00 Temperature 36.4 C 36.6 C Pulse Rate 76 79 Respiratory Rate 17 20 Blood Pressure 142/67 H 136/59 L Pulse Oximetry 97 95 Oxygen Delivery Room Air 03/11/22 08:25 03/11/22 14:00 Temperature 37.5 C Pulse Rate 87 Respiratory Rate 17 Blood Pressure 123/67 Pulse Oximetry 98 Oxygen Delivery Room Air Intake/Output Intake/Output: Intake & Output 03/08/22 03/09/22 03/10/22 03/11/22 23:59 23:59 23:59 23:59 Intake Total 3350 2300 2200 1000 Output Total 450 1650 2400 1025 Balance 2900 650 -200 -25 Meds/Results Medications: Active Medications Generic Name Dose Route Start Last Admin Trade Name Freq PRN Reason Stop Dose Admin Acetaminophen 1,000 mg 03/11/22 15:25 Acetaminophen 500 Mg Tablet PO Q6H PRN Mild Pain (1-3) or Fever Hydrocodone Bitart/Acetaminophen 1 tab 03/11/22 15:25 Hydrocodone/Acetaminophen (*Crx) 5-325 Mg Tablet PO Q6H PRN Pain Rated 4-6 Benzocaine 1 lozenge 03/08/22 13:44 03/08/22 14:39 Benzocaine/Menthol (*Bkc) 18 Ea Lozenge PO 1 lozenge PRN PRN Administration Sore Throat Bupropion HCl 300 mg 03/11/22 21:00 Bupropion Hcl Xl (24 Hr) 150 Mg Tabcr PO HS MANINDER Enoxaparin Sodium 40 mg 03/09/22 09:00 03/11/22 08:27 Enoxaparin 40 Mg/0.4 Ml Syringe SUB-Q 40 mg DAILY MANINDER Administration Famotidine 20 mg 03/11/22 21:00 Famotidine 20 Mg Tablet PO Q12HR [facility] Lactated Ringer's
[2022-03-11] MEDS: ZOLPIDEM TARTRATE (*CRX) 5 MG TABLET PO (20:08)
[2022-03-11] MEDS: buPROPion HCL XL (24 HR) 150 MG TABCR 300 MG PO (20:08)
[2022-03-11] MEDS: FAMOTIDINE 20 MG TABLET PO (21:42)
[2022-03-11 21:47] VITALS: BP 145/78; PULSE 87; RESP 18; TEMP 37; O2SAT 97
[2022-03-12 06:00] VITALS: BP 138/78; PULSE 83; RESP 17; TEMP 36.8; O2SAT 94
[2022-03-12 06:59] LABS: Basophils Absolute Auto 0.1 K/mm3 (0.0-0.1); Eosinophils Absolute Auto 0.1 K/mm3 (0-0.3); Eosinophils Percent Auto 1.2 % (0-4.4); Hematocrit 30.8 % (37.0-47.0); Immature Granulocyte Absolute 0.03 K/mm3 (0.00-0.031); Immature Granulocyte Percent A 0.5 % (0-0.5); Lymphocytes Absolute Auto 1.16 K/mm3 (0.9-3.2); Lymphocytes Percent Auto 19.8 % (18.3-44.2); Mean Corpuscular HGB Conc 32.5 g/dl (32-36); Mean Corpuscular Hemoglobin 29.9 pg (26-34); Mean Corpuscular Volume 92.2 fl (80-100); Mean Platelet Volume 9.8 fl (7.4-10.4); Monocytes Percent Auto 16.7 % (2.6-8.5); Neutrophils Absolute Auto 3.6 K/mm3 (1.3-6.7); Neutrophils Percent Auto 60.8 % (45.5-73.1); Platelet Count Result 161 k/mm3 (150-375); Red Blood Count 3.34 M/mm3 (4.2-5.4); White Blood Count 5.9 K/mm3 (4.5-10.0)
[2022-03-12 07:25] LABS: Alanine Aminotransferase 19 U/L (6-35); Albumin Level 3.5 g/dL (3.5-5.1); Alkaline Phosphatase 67 U/L (38-126); Anion Gap 10 mmol/L (8-16); Aspartate Amino Transferase 25 U/L (14-36); Bilirubin,Total 0.5 mg/dL (0.2-1.3); Blood Urea Nitrogen 11 mg/dL (7-17); Calcium 8.3 mg/dL (8.4-10.2); Carbon Dioxide 29 mmol/L (22-30); Chloride 99 mmol/L (98-107); Estimated CRCL calculation 78 ml/min; Estimated Glomerular Filt Rate > 60; Glucose 93 mg/dL (65-110); Potassium 3.3 mmol/L (3.4-5.0); Sodium 138 mmol/L (137-145)
--- NOTE | 2022-03-12 07:34 | P.PNIM_ITS ---
Progress Note: A&P Assessment and Plan (1) Small bowel obstruction: Code(s): K56.609 - Unspecified intestinal obstruction, unspecified as to partial versus complete obstruction Status: Acute Assessment and Plan: * POD 3 * Presented with abdominal pain, found to have closed-loop small-bowel obstruction noted on imaging * Consultation by General surgery * s/p adhesiolysis on 03/08/2022. patient tolerated the procedure well * NG tube DC'd 03/11/22 * Diet advanced to full liquids * Continue IV fluids for now * Advance diet as tolerated per surgical recommendations * Bowel sounds present * increased activity * supportive care. Analgesics and antiemetics available as needed (2) Anemia: Code(s): D64.9 - Anemia, unspecified Status: Acute Assessment and Plan: * H/H 10.0/30.8 * mild, normocytic. * H&H remaining stable postoperatively * Anemia labs iron 41, TIBC 260,% saturation 16, ferritin 106, B12 938, folate 7.2 * Supplement as indicated (3) Hyperlipidemia: Code(s): E78.5 - Hyperlipidemia, unspecified Status: Acute Assessment and Plan: * Rosuvastatin on hold while NPO. Resume when clinically appropriate. LFTs are stable to continue this medication. (4) Anxiety and depression: Code(s): F41.9 - Anxiety disorder, unspecified; F32.A - Depression, unspecified Status: Acute Assessment and Plan: * No acute issues. Bupropion on hold at this time. Resume when appropriate (5) Migraines: Code(s): G43.909 - Migraine, unspecified, not intractable, without status migrainosus Status: Acute Assessment and Plan: * Patient complains of migraine headache. * Review of PCP notes suggest this to be an ongoing, persistent issue. * Referred to Neurology last year but unclear if patient followed up. * Minimal improvement with Tylenol. * Excedrin given 03/10/22 * Supportive care. * Ice pack or heat as needed. * Resolved at this time Time Spent With Patient Time with patient: Greater than 35 minutes Subjective Date/time seen: 03/12/22 07:34 Interval history: 03/12/22 03/11/22 1181 Patient is very hopeful that she can get her NG tube out as she stated that she is having some nose and throat pain. She denies any chest pain, nausea, vomiting, diarrhea, shortness of breath. She did state that she has been having some gas and that her headache is gone. She does have positive bowel sounds in all 4 quadrants. She was up walking around when I seen her. She steady on her feet. She is ready to go however will need to wait to see if the patient can tolerate a diet. Date of service: 03/10/2022 Amada Willis is a 66-year-old female with a history of hearing loss, hyperlipidemia, migraines, peripheral neuropathy, hysterectomy, appendectomy, sleeve gastrectomy, and cholecystectomy who is seen in follow-up for small-bowel obstruction now s/p adhesiolysis. She feels well today. She complains of abdominal soreness with movement. Otherwise no major concerns. Reports still not passing flatus. No bowel movements. No nausea or vomiting. Continues to complain of persistent headache. No shortness of breath, cough, chest pain. Review of Systems Review of Systems: All systems reviewed & are unremarkable except as noted in HPI and below Exam
--- NOTE | 2022-03-12 07:34 | PM.IMPN ---
Progress Note: A&P Assessment and Plan (1) Small bowel obstruction: Code(s): K56.609 - Unspecified intestinal obstruction, unspecified as to partial versus complete obstruction Status: Acute Assessment and Plan: POD 3 Presented with abdominal pain, found to have closed-loop small-bowel obstruction noted on imaging Consultation by General surgery s/p adhesiolysis on 03/08/2022. patient tolerated the procedure well NG tube DC'd 03/11/22 Diet advanced to full liquids Continue IV fluids for now Advance diet as tolerated per surgical recommendations Bowel sounds present increased activity supportive care. Analgesics and antiemetics available as needed (2) Anemia: Code(s): D64.9 - Anemia, unspecified Status: Acute Assessment and Plan: H/H 10.0/30.8 mild, normocytic. H&H remaining stable postoperatively Anemia labs iron 41, TIBC 260,% saturation 16, ferritin 106, B12 938, folate 7.2 Supplement as indicated (3) Hyperlipidemia: Code(s): E78.5 - Hyperlipidemia, unspecified Status: Acute Assessment and Plan: Rosuvastatin on hold while NPO. Resume when clinically appropriate. LFTs are stable to continue this medication. (4) Anxiety and depression: Code(s): F41.9 - Anxiety disorder, unspecified; F32.A - Depression, unspecified Status: Acute Assessment and Plan: No acute issues. Bupropion on hold at this time. Resume when appropriate (5) Migraines: Code(s): G43.909 - Migraine, unspecified, not intractable, without status migrainosus Status: Acute Assessment and Plan: Patient complains of migraine headache. Review of PCP notes suggest this to be an ongoing, persistent issue. Referred to Neurology last year but unclear if patient followed up. Minimal improvement with Tylenol. Excedrin given 03/10/22 Supportive care. Ice pack or heat as needed. Resolved at this time Time Spent With Patient Time with patient: Greater than 35 minutes Subjective Date/time seen: 03/12/22 07:34 Interval history: 03/12/22 03/11/22 0945 Patient is very hopeful that she can get her NG tube out as she stated that she is having some nose and throat pain. She denies any chest pain, nausea, vomiting, diarrhea, shortness of breath. She did state that she has been having some gas and that her headache is gone. She does have positive bowel sounds in all 4 quadrants. She was up walking around when I seen her. She steady on her feet. She is ready to go however will need to wait to see if the patient can tolerate a diet. Date of service: 03/10/2022 Amada Willis is a 66-year-old female with a history of hearing loss, hyperlipidemia, migraines, peripheral neuropathy, hysterectomy, appendectomy, sleeve gastrectomy, and cholecystectomy who is seen in follow-up for small-bowel obstruction now s/p adhesiolysis. She feels well today. She complains of abdominal soreness with movement. Otherwise no major concerns. Reports still not passing flatus. No bowel movements. No nausea or vomiting. Continues to complain of persistent headache. No shortness of breath, cough, chest pain. Review of Systems Review of Systems: All systems reviewed & are unremarkable except as noted in HPI and below Exam Const: General: cooperative, healthy appearing, no acute distress, well developed, alert, awake and well nourished Nutritional Appearance: well nourished Orientation/consciousness: patient oriented x3 Limitations: no limitations HENMT: Head: normal to inspection Ears: hearing grossly normal bilaterally Face/Nose/Sinus: Normal external nose present Mouth: Yes lip normal, Yes tongue normal, Yes moist mucous membranes and Yes dry mucous membranes Teeth and gingiva: abnormal tooth and associated gingiva and poor dentition Eyes: General: appeara
--- NOTE | 2022-03-12 07:36 | PC.NURSE ---
This nurse assumed care of this patient on 03/11/22 at 1900. Any medications administered or charting after 1900 on 03/11/22 was KLL not the previous nurse.
[2022-03-12] MEDS: POTASSIUM CHLORIDE 20 MEQ TABLET 40 MEQ PO (09:04)
[2022-03-12] MEDS: ENOXAPARIN 40 MG/0.4 ML SYRINGE SUB-Q (09:05)
--- NOTE | 2022-03-12 09:15 | PM.DS ---
DS: Admitting Diagnosis Discharge Date 03/12/22 0915 Admitting Diagnosis Small bowel obstruction DS: Discharge Diagnosis Discharge Diagnosis (1) Small bowel obstruction: Code(s): K56.609 - Unspecified intestinal obstruction, unspecified as to partial versus complete obstruction Status: Acute Assessment and Plan: POD 3 Presented with abdominal pain, found to have closed-loop small-bowel obstruction noted on imaging Consultation by General surgery s/p adhesiolysis on 03/08/2022. patient tolerated the procedure well NG tube DC'd 03/11/22 Diet advanced to full liquids Continue IV fluids for now Advance diet as tolerated per surgical recommendations Bowel sounds present increased activity supportive care. Analgesics and antiemetics available as needed (2) Anemia: Code(s): D64.9 - Anemia, unspecified Status: Acute Assessment and Plan: H/H 10.0/30.8 mild, normocytic. H&H remaining stable postoperatively Anemia labs iron 41, TIBC 260,% saturation 16, ferritin 106, B12 938, folate 7.2 Supplement as indicated (3) Hyperlipidemia: Code(s): E78.5 - Hyperlipidemia, unspecified Status: Acute Assessment and Plan: Rosuvastatin on hold while NPO. Resume when clinically appropriate. LFTs are stable to continue this medication. (4) Anxiety and depression: Code(s): F41.9 - Anxiety disorder, unspecified; F32.A - Depression, unspecified Status: Acute Assessment and Plan: No acute issues. Bupropion on hold at this time. Resume when appropriate (5) Migraines: Code(s): G43.909 - Migraine, unspecified, not intractable, without status migrainosus Status: Acute Assessment and Plan: Patient complains of migraine headache. Review of PCP notes suggest this to be an ongoing, persistent issue. Referred to Neurology last year but unclear if patient followed up. Minimal improvement with Tylenol. Excedrin given 03/10/22 Supportive care. Ice pack or heat as needed. Resolved at this time DS: Summary Hospital Course Hospital Course: Patient is a 66-year-old female with a past medical history of hyperlipidemia, appendectomy, gastric sleeve, cholecystectomy who presented the hospital with abdominal pain with radiation to the back. This all occurred after a BM. ?CTA of the abdomen and pelvis showed closed loop small-bowel obstruction and small volume of ascites.? Abdominal x-ray showed small bowel obstruction. General surgery was consulted and patient was taken to the OR for a adhesiolysis on 03/08/22. NG tube was placed and suction was titrated. Patient has been very active and it was reported that she had a BM today. She does have some notable anemia which appears to be stable at this time with H/H 10.0/30.8. Anemia labs did not indicate any supplementation need. She is currently doing well. She stated that she has been able to tolerate a soft diet which she will need to DC on. She also stated that she is able to move around ok. Currently she denies any chest pain, shortness of breath, nausea, vomiting, diarrhea, constipation, weakness, fatigue, urinary issues. She did state that she is still experiencing soreness, mostly related to her procedure. Labs and vital signs are stable. She is stable for discharge at this time. Education about wound infection was given and patient verbalized understanding. Status at Discharge Functional status at discharge: independent ambulation Overall status at discharge: patient is progressing back to baseline Time Spent with Patient Time attestation: Total time spent providing and/or coordinating discharge services: 37 minutes Time spent: Greater than 30 minutes Exam Const: General: cooperative, healthy appearing, no acute distress, well developed, alert, awake and well nourished Nutritional Appearance
--- NOTE | 2022-03-12 09:15 | P.DS_ITS ---
DS: Admitting Diagnosis Discharge Date 03/12/22 0915 Admitting Diagnosis Small bowel obstruction DS: Discharge Diagnosis Discharge Diagnosis (1) Small bowel obstruction: Code(s): K56.609 - Unspecified intestinal obstruction, unspecified as to partial versus complete obstruction Status: Acute Assessment and Plan: * POD 3 * Presented with abdominal pain, found to have closed-loop small-bowel obstruction noted on imaging * Consultation by General surgery * s/p adhesiolysis on 03/08/2022. patient tolerated the procedure well * NG tube DC'd 03/11/22 * Diet advanced to full liquids * Continue IV fluids for now * Advance diet as tolerated per surgical recommendations * Bowel sounds present * increased activity * supportive care. Analgesics and antiemetics available as needed (2) Anemia: Code(s): D64.9 - Anemia, unspecified Status: Acute Assessment and Plan: * H/H 10.0/30.8 * mild, normocytic. * H&H remaining stable postoperatively * Anemia labs iron 41, TIBC 260,% saturation 16, ferritin 106, B12 938, folate 7.2 * Supplement as indicated (3) Hyperlipidemia: Code(s): E78.5 - Hyperlipidemia, unspecified Status: Acute Assessment and Plan: * Rosuvastatin on hold while NPO. Resume when clinically appropriate. LFTs are stable to continue this medication. (4) Anxiety and depression: Code(s): F41.9 - Anxiety disorder, unspecified; F32.A - Depression, unspecified Status: Acute Assessment and Plan: * No acute issues. Bupropion on hold at this time. Resume when appropriate (5) Migraines: Code(s): G43.909 - Migraine, unspecified, not intractable, without status migrainosus Status: Acute Assessment and Plan: * Patient complains of migraine headache. * Review of PCP notes suggest this to be an ongoing, persistent issue. * Referred to Neurology last year but unclear if patient followed up. * Minimal improvement with Tylenol. * Excedrin given 03/10/22 * Supportive care. * Ice pack or heat as needed. * Resolved at this time DS: Summary Hospital Course Hospital Course: Patient is a 66-year-old female with a past medical history of hyperlipidemia, appendectomy, gastric sleeve, cholecystectomy who presented the hospital with abdominal pain with radiation to the back. This all occurred after a BM. ?CTA of the abdomen and pelvis showed closed loop small-bowel obstruction and small volume of ascites.? Abdominal x-ray showed small bowel obstruction. General surgery was consulted and patient was taken to the OR for a adhesiolysis on 03/08/22. NG tube was placed and suction was titrated. Patient has been very active and it was reported that she had a BM today. She does have some notable anemia which appears to be stable at this time with H/H 10.0/30.8. Anemia labs did not indicate any supplementation need. She is currently doing well. She stated that she has been able to tolerate a soft diet which she will need to DC on. She also stated that she is able to move around ok. Currently she denies any chest pain, shortness of breath, nausea, vomiting, diarrhea, constipation, weakness, fatigue, urinary issues. She did state that she is still experiencing soreness, mostly related to her procedure. Labs and vital signs are stable. She is stable for discharge at this time. Education about wound infection was given and patient verbalize
[2022-03-12] MEDS: FAMOTIDINE 20 MG TABLET PO (09:37)
== END 2022-03-12 13:45 | disposition home or self-care (01) | DRG 337 ==
LOC: ANHED 23:32 → ANH3MEDSUR 03-08 02:29
PROVIDERS: Surgery; Admitting Provider Chiropractor; Emergency Provider Preventive Medicine Aerospace Medicine; PCP Family Medicine; Visit Provider Nurse Practitioner
PROC: 0DN80ZZ Release Small Intestine, Open Approach (ICD-10-PCS; CPT 49000; principal; 2022-03-08 10:30)
DX: K56.50 Intestinal adhesions [bands], unspecified as to partial versus complete obstruction (principal); D64.9 Anemia, unspecified; E78.5 Hyperlipidemia, unspecified; H91.90 Unspecified hearing loss, unspecified ear; G43.809 Other migraine, not intractable, without status migrainosus; G47.00 Insomnia, unspecified; F32.A Depression, unspecified; F41.9 Anxiety disorder, unspecified; Z98.84 Bariatric surgery status; Z90.49 Acquired absence of other specified parts of digestive tract
CPT/HCPCS: 36415; 74174; 80048; 80053; 81001; 82607; 82728; 82746; 83540; 83550; 83605; 83690; 83735; 85025; 85027; 85055; 85610; 86850; 86900; 86901; 96361; 96374; 96375; 96376; 99285; A9270; J0131; J0330; J0690; J1100; J1650; J1741; J2250; J2270; J2405; J2704; J2710; J3010; J7030; J7120; Q9967

== ENCOUNTER → 2022-05-27 12:12 | Outpatient (CLI) | payer OTHER, SELFPAY ==
--- NOTE | ~2022-05-27 | XR_ITS ---
Right Hand Technique: PA and lateral views were obtained. Clinical History: Pain Findings: No acute fracture or dislocation is seen. Osseous alignment is anatomic. Joint spaces are p reserved. Soft tissues are unremarkable. Impression: Unremarkable right hand. Reviewed, dictated and finalized at location M. CTOR OF NATIONAL SALES Impression: Unremarkable right hand.
--- NOTE | ~2022-05-27 | XR_ITS ---
Right thumb Technique: PA, oblique, and lateral views were obtained. Clinical History: Pain Findings: No acute fracture or dislocation is seen. Osseous alignment is anatomic. Mild degenerative change of the first CMC joint noted. Small dorsal spur at the base of the distal phalanx noted. Soft tissues are unremarkable. Impression: No fracture or dislocation. Mild degenerative change of the first CMC joint. Small dorsal spur from the base of the distal phalanx. Reviewed, dictated and finalized at location M. ING MACHINE OPERATOR Impression: No fracture or dislocation. Mild degenerative change of the first CMC joint. Small dorsal spur from the base of the distal phalanx.
== END ==
PROVIDERS: PCP Family Medicine; Visit Provider Nurse Practitioner Family
DX: M19.041 Primary osteoarthritis, right hand (principal)
CPT/HCPCS: 73120; 73140

== ENCOUNTER 2024-07-05 09:38 | Outpatient (CLI) | payer OTHER, SELFPAY ==
--- NOTE | ~2024-07-05 | MM_ITS ---
EXAMINATION: MM screening justine BI w javi HISTORY: Screening mammogram TECHNIQUE: Craniocaudal and mediolateral oblique 3-D tomosynthesis images were obtained and synthetic 2-D images were generated. CAD analysis was submitted and interpreted. COMPARISON: 03/31/2021, 08/13/2015 BREAST PARENCHYMAL COMPOSITION:Not Dense. There are scattered areas of fibroglandular density. FINDINGS: Stable nodular opacities right subareolar region. No suspicious mass, calcification, or arc hitectural distortion are identified in either breast to suggest malignancy. There has been no suspic ious interval change. IMPRESSION: No mammographic evidence of malignancy. Recommend routine screening mammography in one year. BI-RADS Category 2: Benign finding(s). Reviewed, dictated and finalized at location . ARCHITECT
--- OUTSIDE RECORDS SUMMARY | 2024-07-05 10:24 | XMS_ITS | Encounter Summary ---
Author Organization [facility] Address [address] [place] [address] Care Team Providers Care Independent Freight Agent Name Role Phone Randy Haas MD Primary Care Provider [phone] Encounter Details Date Type Department Care Team (Late st Contact Info) Description 06/28/1999 Outpatient Historical Division of Neurology [address] [facility] [address] (Excluded Provider) [place] [address] [facility] [address] [place] [address] Social History Tobacco Use Types Packs/Day Years Used Date Smoking Tobacco: Never Assessed Comments Unknown Sex and Gender Information Value Date Recorded Sex Assigned at Not on file 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 [address] PCP - General 07/17/09 documented as of this encounter
--- OUTSIDE RECORDS SUMMARY | 2024-07-05 10:24 | XMS_ITS | Encounter Summary ---
Author Organization [facility] Address 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 [id number] PCP - General 07/17/09 documented as of this encounter
--- OUTSIDE RECORDS SUMMARY | 2024-07-05 10:24 | XMS_ITS | CONTINUITY OF CARE DOCUMENT ---
Author Name tracy molina Address Unknown Organization [facility] Address [address] [place] [address] [address] [place] [address] Phone [phone] Care Team Providers Care Exhibit Cleaner Name Role Phone tracy molina Unavailable Unavailable
--- OUTSIDE RECORDS SUMMARY | 2024-07-05 10:24 | XMS_ITS | Clinical Summary ---
Author Organization [facility] Care Team Providers Care Craniologist Name Role Phone Unavailable Primary Care Provider Unavailabl e Social History Tobacco Use Types Packs/Day Years Used Date Smoking Tobacco: Never Assessed Comments Unknown Sex and Gender Information Value Date Recorded Sex Assigned at Not on file Legal Sex Female 3:44 PM CDT Gender Identity Not on file Sexual Orientation Not on file Plan of Treatment Health Maintenance Due Date Last Done Comments DEXA Bone Density 1955 Hepatitis C Virus (HCV) Screening 1955 TdaP Immunization 1955 Colonoscopy 2001 Colorectal Cancer Screening 2001 Cologuard 2006 Immunochemical Fecal Occult Blood 2006 Mammogram 2006 Pneumococcal Immunization (5 0+ years) (1 of 1 - PCV) 2006 Zoster Immunization (1 of 2) 2006 Influenza Immunization (#1) 2024 03/25/2018 SARS-COV-2 Immunization ( - season) 2024 Respiratory Syncytial Virus (RSV) Immunization (Adult) (1 - 1-dose 75+ series) 2031 Hepatitis B Immunization Aged Out No longer eligible based on patient's age to complete this topic Meningococcal Immunization (ACWY) Aged Out No longer eligible based on patient's age to complete this topic Rotavirus Immunization Aged Out No lo nger eligible based on patient's age to complete this topic
--- OUTSIDE RECORDS SUMMARY | 2024-07-05 10:24 | XMS_ITS | Clinical Summary ---
Author Organization [facility] Address [address] [place] [address] Phone Care Team Providers Care Transport Driver Name Role Phone Randy Haas MD Primary Care Provider [phone] Allergies No known active allergies Medications eszopiclone (LUNESTA) 1 mg Oral Tab Take 1 mg by mouth nightly as needed. Active HYDROcodone-clfiton taminophen (NORCO) 5-325 mg Oral tablet Take 1-2 Tabs by mouth every 4 hours as needed for Pain, Moderate (For Pain Scale 4-6). 70 Tab 1 05/19/2012 Active docusate sodium (COLACE) 100 mg Oral capsule Take 1 Cap by mouth 2 times daily. 100 Cap 1 05/19/2012 Active amoxicillin (AMOXIL) 500 mg capsule 01/27/2016 Active buPROPion HCl (WELLBUTRIN XL) 150 mg Extended Release 24 hour tablet 02/13/2016 Active zolpidem (AMBIEN) 5 mg tablet 02/17/2016 Active methylPREDNISol one (MEDROL DOSPACK) 4 mg Tablets, Dose Pack Take as directed. 1 Package 0 03/01/2016 Active diclofenac sodium (VOLTAREN) 75 mg Tablet, Delayed Release (E.C.) Take 1 Tablet (75 mg) by mouth 2 times daily. 60 Tablet 1 10/02/2019 Active Active Problems Problem Noted Date Diagnosed Date H/O total knee replacement, right 11/16/2019 Lump or mass in breast 03/16/2010 Immunizations Immunization Administration Dates Next Due (PNEUMOVAX 23)(50 YRS UP) PN EUMOCOCCAL POLYSACCHARIDE (PPV23) 0.5 ML, IM 05/19/2012 Influenza Seasonal Unspecified Formulation IM Influenza Vaccine Split PF ID 05/19/2012 Family History Medical History Relation Name Comments Cancer Maternal Aunt Breast Cancer Neg Hx Ovarian Cancer Neg Hx Relation Name Status Comments Maternal Aunt Social History Tobacco Use Types Packs/Day Years Used Date Smoking Tobacco: Former Cigarettes Q uit: 05/29/2003 Alcohol Use Standard Drinks/Week Comments No 0 (1 standard drink = 0.6 oz pur e alcohol) Comments Unknown Sex and Gender Information Value Date Recorded Sex Assigned at Not on file Legal 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 Gender Identity Not on file Sexual Orientation Not on file Occupation Industry Job Start Date Job End Date Not on file Not on file Not on file Not on file Last Filed Vital Signs Vital Sign Reading Time Taken Comments Blood Pressure 122/82 03/01/2016 3:54 PM CDT Pulse 92 03/01/2016 3:54 PM CDT Temperature 36.8 C (98.3 F) 05/19/2012 9:43 AM LIME PLANT OPERATOR Respiratory Rate 16 05/19/2012 9:43 AM LIME PLANT OPERATOR Oxygen Saturation 96% 05/19/2012 9:43 AM LIME PLANT OPERATOR Inhaled Oxygen Concentration - - Weight 61.7 kg (136 lb) 11/13/2019 8:55 AM CDT Height 162.6 cm (5' 4 ) 11/13/2019 8:55 AM CDT Body Mass Index 23.34 11/13/2019 8:55 AM CDT Plan of Treatment Health Maintenance Due Date Last Done Comments DTAP/TDAP/TD VACCINES (1 - Tdap) 1975 COLORECTAL SCREENING 2001 Colorectal Cancer Screening 2001 FIT-DNA Q 3 years 2001 FIT/FOBT Q 1 year 2001 Flex Sig/CT Colonography Q 5 years 2001 ZOSTER VACCINE (1 of 2) 2006 PNEUMOCOCCAL VACCINE 65+ YEA RS (2 of 2 - PCV) 05/19/2013 05/19/2012 BREAST CANCER SCREENING 08/12/2016 08/13/19 16, 11/08/2013, 03/05/2010 OSTEOPOROSIS SCREENING 2021 INFLUENZA VACCINE (#1) 2023 05/19/2012, 2010 RSV VACCINE (60+ or ) (1 - 1-dose 75+ series) 2031 Medical Devices Implanted Type Area Door Cutter Device Identifier Shelf Expiration Date Model / Serial / Lot Cement Kite G-Hv 40g [id number] - [id number] Implanted:Qty: 1 on 05/17/2012 by Cristopher Ruvalcaba MD at [facility] Cement Right: Knee 07/26/2013 [id number] / / [id number] Comp Fem Vngrd Cr Intrlk Rt 62.5mm [id number] - [id number] Implanted:Qty: 1 on 05/17/2012 by Cristopher Ruvalcaba MD at [facility] Knee Right: Knee [employer] 02/26/2020 [id number] / / [id number] Patella 3peg Series A [id number] - [id number] Implanted:Qty: 1 on 05/17/2012 by Cristopher Ruvalcaba MD at [facility] Knee Right: Knee [employer] 02/25/2017 [id number] / / [id number] Plate Tib Cocr Finned 71mm [id number] - [id number] Implanted:Qty: 1 on 05/17/2012 by Cristopher Ruvalcaba MD at [facility] Knee Right: Knee [employer] 02/25/2022 [id number] / / [id number] Brng Tib Vngrd Epoly Cr [id number] - [id number] Implanted:Qty: 1 on 05/17/2012 by Cristopher Ruvalcaba MD at [facility] Knee Right: Knee [employer] 03/27/2017 [id number] / / [id number] Description:EPOLY BEARING IS NOT PART OF TOTAL KNEE CAP PRICING, WILL BE CHARGED SEPARATELY. Procedures Procedure Name Priority Date/Time Associated Diagnosis Comments MAMMO SCREEN BILAT W OR WO CAD Routine 08/13/2015 11:33 AM CDT Visit for screening mammogram from Last 3 Months or Most Recently Relevant to Health Maintenance Results * MAMMO DIGITAL SCREEN BILAT (08/13/2015 11:33 AM CDT) Anatomical Region Laterality Modality Breast Bilateral Mammography Narrative 08/13/2015 12:07 PM CDT Bilateral digital screening mammogram with computer assisted diagnosis History: Annual screening exam. Findings: A bilateral screening mammogram was performed. Comparison is made to : 11/08/2013, 03/05/2010 There are scattered fibroglandular densities. No new masses, suspicious calcifications, or areas of asymmetry or distortion are identified. CAD was utilized. Impression: Negative screening mammogram. Recommendation: Routine annual follow-up Overall Assessment: Birads Category 1: Negative us June Young MD MAMMO ORDERABLES Final Result from Last 3 Months or Most Recently Relevant to Health Maintenance Insurance Advance Directives For more information, please contact: [phone] * Full Code (Latest Code Status on File) Date Activated Date Inactivated Comments 05/17/2012 4:13 PM 05/19/2012 2:49 PM * Full Code Date Activated Date Inactivated Comments 05/17/2012 10:43 AM 05/17/2012 4:13 PM * Full Code Date Activated Date Inactivated Comments 05/17/2012 9:57 AM 05/17/2012 10:43 AM Care Teams Transport Driver Relationship Specialty Start Date End Date Randy Haas MD [address] [place] [address] [facility] - General 07/17/09
== END 2024-07-05 09:39 | disposition home or self-care (01) ==
LOC: ANHIMG 09:41
PROVIDERS: PCP Family Medicine; Visit Provider Nurse Practitioner Family
DX: Z12.31 Encounter for screening mammogram for malignant neoplasm of breast (principal)
CPT/HCPCS: 77063; 77067